=== PATIENT | female | born 1995 | race Caucasian/White ===

== ENCOUNTER 2017-10-04 21:11 | Emergency (ER) | payer MEDICAID, SELFPAY ==
[2017-10-04 21:11] VITALS: BP 126/77; PULSE 86; RESP 15; TEMP 36.7; BMI 19.8
--- NOTE | 2017-10-04 21:26 | ED.VISSUMM ---
- ER Visit Summary Date of Service: 10/04/17 Chief Complaint: Vaginal discharge History of Present Illness: The patient is a 22 F who present for day history of vaginal discharge. Patient states that her boyfriend told her he tested positive for gonorrhea. She has had some mild pelvic cramping for the past 3 days. No dysuria or fever. Patient recently came off the control shot. She states she has had some spotting in September but had a normal period. She took 2 sazc-cij-yhelkqt tests that were both invalid. Physical Examination: Vital signs are unremarkable. Patient sitting upright in bed no acute distress. Heart is regular rate and rhythm. Lung sounds are clear. Abdomen is soft with mild suprapubic tenderness. No guarding or rebound. No back or CVA tenderness. Test Results: Urinalysis returns positive for nitrites but only 0-5 white blood cells and 5-10 epithelials. Urine test is negative. Urine culture will be sent. GC and Chlamydia testing was sent. Emergency Department Course and Treatment: She denies any perineal lesions. With the known exposure we agreed to run urine for testing and forego the pelvic examination. With a known exposure this would not greatly change our treatment. Patient was treated with Rocephin and Zithromax. She was notified that if her gonorrhea or chlamydia test are positive she will receive a phone call to notify her. Likewise, if her urine culture is positive and she requires antibiotics she will be notified. Treatment Plan: [] Disposition: Discharge Impression: STD exposure This note was generated with [employer] dictation software. It may contain incorrect words, spelling, and punctuation that were not noted in review of the chart prior to signing ED Disposition - Plan for ED Patient: Chief Complaint: Female C/O
[2017-10-04 21:45] LABS: Mucous, Urine 0 SEEN /hpf (<or=2+); Red Blood Cells-Urine 0 SEEN /hpf (0-5)
[2017-10-04 21:49] LABS: Color, Urine Yellow (Yellow); Glucose, Dipstick Normal (Normal); Ketone-Dipstick Negative (Negative); Leukocyte Esterase-Dipstick 25 /ul (Negative); Nitrite-Dipstick Positive (Negative); Occult Blood-Urine Negative /ul (Negative); Protein-Dipstick 15 mg/dl (Negative); Specific Gravity, Urine 1.025 (1.002-1.030); Urine Bilirubin Dipstick Negative (Negative); Urine Clarity Sl. Cloudy (Clear); Urine Urobilinogen Normal (Normal)
[2017-10-04 21:52] LABS: Internal QC Validated? YES +Cl - CLEAR BKGD; Pregnancy, Urine Negative Negative
[2017-10-04 21:56] LABS: Amorphous Sediment 1+ URATE; Bacteria 1+ /hpf (None Seen); Squamous Epithelial Cells - UA 5-10 SEEN /hpf (5-10); White Blood Cells 0-5 SEEN /hpf (0-5)
--- NOTE | 2017-10-04 22:08 | ED.DEP ---
ED Disposition - Plan for ED Patient: Disposition: Home or Assisted Living Chief Complaint: Female C/O Instructions: ED Chlamydia GC Poss Culture Pend Referrals: Gordon Hernandez MD [STAFF PHYSICIAN] - As Needed
[2017-10-04] MEDS: Azithromycin 250 MG Tablet 1000 MG PO (22:14)
[2017-10-04] MEDS: Ceftriaxone 500 MG Vial 250 MG IM (22:24)
[2017-10-04 22:39] VITALS: BP 118/40; PULSE 79; RESP 18; O2SAT 97
[2017-10-04 23:23] LABS: Chlamydia Trachomatis by PCR Negative (Negative); Neisserai gonorrhoeae by PCR Positive (Negative); Probe Check PASS
--- NOTE | 2017-10-04 23:30 | ED.RN ---
LAB CALLED WITH POSITIVE GONORRHEA RESULTS. SPOKE WITH DR. CHAPA. PATIENT HAS BEEN TREATED FOR CONDITION. PATIENT ATTEMPTED TO BE CONTACTED WITH RESULTS. PATIENT DID NOT ANSWER NOR HAS VOICE MAIL SET UP AT THIS TIME FOR LEAVING A MESSAGE.
--- NOTE | 2017-10-05 00:04 | ED.RN ---
PATIENT CALLED BACK AND INFORMED OF RESULTS. NO FURTHER TREATMENT REQUIRED
== END 2017-10-04 22:40 | disposition home or self-care (01) ==
PROVIDERS: Emergency Provider Emergency Medicine; Family Provider Family Medicine; PCP Family Medicine
DX: Z20.2 Contact with and (suspected) exposure to infections with a predominantly sexual mode of transmission (principal); Z86.19 Personal history of other infectious and parasitic diseases; Z72.0 Tobacco use
CPT/HCPCS: 81001; 81025; 87077; 87086; 87088; 87186; 87491; 87591; 96372; 99283

== ENCOUNTER 2017-11-18 18:22 | Emergency (ER) | payer MEDICAID, SELFPAY ==
[2017-11-18 18:23] VITALS: BP 129/83; PULSE 113; RESP 16; TEMP 37; O2SAT 100; BMI 20.5
[2017-11-18 19:10] VITALS: BP 126/83; BP 129/90; BP 133/93; PULSE 107; PULSE 117; PULSE 118
[2017-11-18 19:35] LABS: Bacteria 0 SEEN /hpf (None Seen); Squamous Epithelial Cells - UA 0 SEEN /hpf (5-10); White Blood Cells 0 SEEN /hpf (0-5)
[2017-11-18 19:38] VITALS: BP 139/93; PULSE 118
[2017-11-18 19:56] LABS: Absolute Neutrophil Count 5.1 X10^3/uL (2.0-7.7); Basophil# 0.03 X10^3/uL; Basophil% 0.4 % (0-1); Eosinophil# 0.15 X10^3/uL; Eosinophils% 1.8 % (0-5); Hemoglobin 12.3 g/dl (12.0-15.0); Lymphocyte % 28.3 % (19-41); Mean Corp Hgb Conc 32.4 g/gl (32-36); Mean Corpuscular Hgb 28.3 pg (27.0-32.0); Mean Corpuscular Volume 87.4 fL (81-99); Mean Platelet Vol. 9.8 fl (6.2-12.0); Monocyte# 0.76 X10^3/uL; Neutrophil # 5.14 X10^3/uL (2.7-7.7); Neutrophil % 60.4 % (47-70); Platelet Count 240 K/mm3 (150-450); RBC Distribution Width CV 13.3 % (11.6-14.6); RBC Distribution Width SD 42.7 fl (35.1-43.9); Red Blood Count 4.35 M/mm3 (4.2-5.4); White Blood Count 8.5 K/mm3 (4.4-11.0)
[2017-11-18 20:06] LABS: Color, Urine Yellow (Yellow); Glucose, Dipstick Normal (Normal); Ketone-Dipstick Negative (Negative); Leukocyte Esterase-Dipstick 25 /ul (Negative); Nitrite-Dipstick Negative (Negative); Occult Blood-Urine 250 /ul (Negative); Protein-Dipstick 15 mg/dl (Negative); Specific Gravity, Urine 1.015 (1.002-1.030); Urine Bilirubin Dipstick Negative (Negative); Urine Clarity Cloudy (Clear); Urine Urobilinogen 4 mg/dl (Normal)
[2017-11-18 20:08] LABS: Internal QC Validated? YES +Cl - CLEAR BKGD; Pregnancy, Urine Negative Negative
[2017-11-18 20:09] LABS: POSITIVE COUNT NO; POSITIVE DIFFERENTIAL NO; POSITIVE MORPHOLOGY NO
[2017-11-18 20:15] LABS: Amorphous Sediment 1+; Red Blood Cells-Urine 25-50 SEEN /hpf (0-5)
--- NOTE | 2017-11-18 20:38 | ED.VISSUMM ---
- ER Visit Summary Date of Service: 11/18/17 Chief Complaint: Pelvic pain and vaginal bleeding History of Present Illness: The patient is a 22 F who presents with pelvic pain. It is sharp. It began today. She also complains of vaginal bleeding. She has a history of irregular menses as she was previously on Depo-Provera she states her last menstrual period was 6 weeks ago. They seem to be heavier than usual. She tried to take 2 tests at home was just resulted in a invalid. She reports urinary frequency. No fevers chest pain shortness of breath nausea vomiting or diarrhea. Physical Examination: Afebrile heart rate 113 although the patient is very anxious Heart regular rhythm tachycardia Lungs are clear Abdomen soft Moderate active bleeding on speculum exam no cervical friability or discharge Test Results: CBC normal. Urinalysis shows blood otherwise normal. is negative. Emergency Department Course and Treatment: Orthostatic vital signs were negative. The patient is tachycardic at baseline but did not have an inappropriate increase in heart rate. I believe a component of her tachycardia is related to anxiety. She does not have severe bleeding. Her blood pressure is normal. Her hemoglobin is normal. Her is negative. She was advised to follow-up with [facility] and was discharged home. Treatment Plan: [] Disposition: Discharge Impression: Pelvic pain Vaginal bleeding This note was generated with [employer] dictation software. It may contain incorrect words, spelling, and punctuation that were not noted in review of the chart prior to signing ED Disposition - Plan for ED Patient: Chief Complaint: Vag Bleeding
--- NOTE | 2017-11-18 20:40 | ED.DEP ---
ED Disposition - Plan for ED Patient: Chief Complaint: Vag Bleeding Instructions: ED Bleed Irregular Vaginal Referrals: Gordon Hernandze MD [STAFF PHYSICIAN] -
[2017-11-18 21:00] VITALS: BP 122/60; PULSE 95; RESP 18; O2SAT 96
== END 2017-11-18 21:00 | disposition home or self-care (01) ==
LOC: ED 20:52
PROVIDERS: Emergency Provider Emergency Medicine; Family Provider Family Medicine; PCP Family Medicine
DX: R10.2 Pelvic and perineal pain (principal); N93.9 Abnormal uterine and vaginal bleeding, unspecified; Z72.0 Tobacco use
CPT/HCPCS: 36415; 81001; 81025; 85025; 99283

== ENCOUNTER 2018-06-18 11:45 | Emergency (ER) | payer MEDICAID, SELFPAY ==
[2018-06-13 15:37] VITALS: BMI 20.5
[2018-06-18 11:46] VITALS: BP 136/88; PULSE 110; RESP 16; TEMP 36.6; O2SAT 97; BMI 21.4
--- NOTE | 2018-06-18 12:07 | ED.VISSUMM ---
- ER Visit Summary Date of Service: 06/18/18 Chief Complaint: Facial rash History of Present Illness: The patient is a 23 F who presents for facial rash, now with left eye swelling for 2 days. Patient had a rash develop on her left forehead and one lesion on the right lower jaw. She was seen by a nurse practitioner and prescribed mupirocin ointment. She is used it for the last 2 days but has had worsening of the facial rash and now swelling around the left eye. She was concern for a allergic reaction. Patient denies any itching. She denies fever, chest pain, shortness of breath, nausea or vomiting, abdominal pain or any other complaints. Patient denies any current drug use. No pain with moving of her eye. Physical Examination: Vital signs: afebrile, hemodynamically stable, no hypoxia on room air General: well nourished, well developed, in no distress Skin: warm, dry, no rash, no pallor, multiple erythematous macules and papules to the face with secondary excoriations, large erythematous lesion with an overlying excoriation on the left superior forehead and a similar one in the mid superior forehead. Similar lesion on the right jawline. No drainage or purulence noted. No surrounding induration or fluctuance. Left periorbital region is diffusely edematous and erythematous. No conjunctival injection. Full active range of motion of the eyes without pain. Vision intact. HEENT: normocephalic and atraumatic; PERRL, EOMI, moist mucous membranes, no posterior oropharyngeal lesions. Tender left superior anterior cervical chain lymphadenopathy. TMs are clear and pearly without any erythema, dullness or bulging. Neck supple, no meningismus. Cardiovascular: regular rate and rhythm without murmurs, no peripheral edema, 2+ pulses all distal extremities Respiratory: No increased work of breathing, lungs are clear to auscultation bilaterally, no rales, rhonchi or wheezing Abdominal: Abdomen is soft, nontender with normoactive bowel sounds, no guarding or rebound, no masses MSK: Moves all extremities, no deformities, normal strength Neuro: Awake and alert, oriented ?4. No facial droop, sensation and motor function intact and symmetric Test Results: [] Emergency Department Course and Treatment: Patient presents with concern for worsening cellulitis of the face. The initial 2 lesions have worsened and rather than improve with the mupirocin ointment. The left periorbital edema and erythema is more consistent with a periorbital cellulitis rather than allergic reaction. Patient was told to discontinue mupirocin use. She was prescribed clindamycin to use for treatment of periorbital cellulitis. Patient otherwise is nontoxic appearing. She was given strict return precautions. Patient discharged home. Treatment Plan: [] Disposition: [] Impression: Left periorbital cellulitis. This note was generated with [employer] dictation software. It may contain incorrect words, spelling, and punctuation that were not noted in review of the chart prior to signing ED Disposition - Plan for ED Patient: Prescriptions: Clindamycin [Cleocin] 450 mg PO TID #10 day Referrals: Vinny Duggan MD [Primary Care Provider] -
--- NOTE | 2018-06-18 12:10 | ED.DEP ---
ED Disposition - Plan for ED Patient: Disposition: Home or Assisted Living Instructions: ED Cellulitis Ema Orbital Prescriptions: Clindamycin [Cleocin] 450 mg PO TID #10 day Referrals: Vinny Duggan MD [Primary Care Provider] - 3-5 Days if not improving Additional Instructions: Stop using the antibiotic ointment. Take the clindamycin antibiotic 3 times a day as prescribed for the full 10 days, even if you feel better before that. If you have any worsening of your condition or any new concerning symptoms, please return immediately to the emergency department for another evaluation.
[2018-06-18 13:03] VITALS: BP 138/82; PULSE 106; RESP 14; O2SAT 99
== END 2018-06-18 13:04 | disposition home or self-care (01) ==
PROVIDERS: Emergency Provider Emergency Medicine; Family Provider Internal Medicine; PCP Internal Medicine
DX: L03.213 Periorbital cellulitis (principal); F32.9 Major depressive disorder, single episode, unspecified; Z79.899 Other long term (current) drug therapy
CPT/HCPCS: 36415; 80053; 84443; 85025; 86703; 86704; 86705; 86706; 86708; 86709; 86803; 87340; 99282

== ENCOUNTER → 2018-06-18 13:08 | Outpatient (CLI) | payer MEDICAID, SELFPAY ==
[2018-06-18 11:46] VITALS: BMI 21.4
[2018-06-18 14:04] LABS: Absolute Lymphocyte Count 2.07 X10^3/ul (0.83-4.51); Absolute Neutrophil Count 4.1 X10^3/uL (2.0-7.7); Basophil# 0.02 X10^3/uL; Basophil% 0.3 % (0-1); Eosinophil# 0.16 X10^3/uL; Eosinophils% 2.3 % (0-5); Hematocrit 44.1 % (37-47); Hemoglobin 14.7 g/dl (12.0-15.0); Lymphocyte # 2.07 X10^3/ul (4.0); Lymphocyte % 30.2 % (19-41); Mean Corp Hgb Conc 33.3 g/gl (32-36); Mean Corpuscular Hgb 29.1 pg (27.0-32.0); Mean Corpuscular Volume 87.3 fL (81-99); Mean Platelet Vol. 9.9 fl (6.2-12.0); Monocyte# 0.51 X10^3/uL; Monocyte% 7.4 % (0-10); Neutrophil # 4.09 X10^3/uL (2.7-7.7); Neutrophil % 59.7 % (47-70); Platelet Count 258 K/mm3 (150-450); RBC Distribution Width CV 12.4 % (11.6-14.6); RBC Distribution Width SD 39.1 fl (35.1-43.9); Red Blood Count 5.05 M/mm3 (4.2-5.4); White Blood Count 6.9 K/mm3 (4.4-11.0)
[2018-06-18 14:05] LABS: POSITIVE COUNT NO; POSITIVE DIFFERENTIAL NO; POSITIVE MORPHOLOGY NO
[2018-06-18 14:37] LABS: ALB/GLOB Ratio 1.1 RATIO (0.9-2.4); AST(SGOT) 14 U/L (15-37); Alanine Aminotransfer ALT/SGPT 16 U/L (13-56); Albumin, Serum 4.3 g/dL (3.2-5.0); Alkaline Phosphatase 96 U/L (45-117); Anion Gap 10 (5-15); BUN 7 mg/dL (7-18); BUN/Creat Ratio 7.8 RATIO (10-20); Calcium,Total 8.7 mg/dL (8.5-10.1); Chloride 109 mmol/L (98-107); EST Glomerular Filtration Rate 84 mL/min (>60); Est Glom Filt Rate - Afr Amer 101 mL/min (>60); Globulin 3.8 g/dL (2.2-4.2); Glucose 104 mg/dL (74-106); Potassium 3.7 mmol/L (3.5-5.1); Protein, Total 8.1 g/dL (6.4-8.2); Sodium Level 142 mmol/L (136-145); Thyroid Stim Hormone (TSH) 1.48 uIU/mL (0.358-3.74)
[2018-06-18 15:08] LABS: HIV - WCH Non-Reactive (Nonreactive)
[2018-06-19 13:08] LABS: HEPATITIS B SURFACE AG Negative (Negative); Hepatitis A AB, Total Positive (Negative); Hepatitis A IgM Antibody Negative (Negative); Hepatitis B Core AB IgM Negative (Negative); Hepatitis B Core Ab Total Negative (Negative); Hepatitis C Ab <0.1 s/co ratio (0.0-0.9)
[2018-06-20 20:50] LABS: Hep B Surface Antibodies Non Reactive (.)
== END ==
PROVIDERS: Family Provider Internal Medicine; PCP Internal Medicine; Referring Provider Nurse Practitioner Family; Visit Provider Nurse Practitioner Family
DX: F19.10 Other psychoactive substance abuse, uncomplicated (principal); F41.8 Other specified anxiety disorders; L29.9 Pruritus, unspecified
CPT/HCPCS: 36415; 80053; 84443; 85025; 86703; 86704; 86705; 86706; 86708; 86709; 86803; 87340

== ENCOUNTER 2018-07-06 02:51 | Emergency (ER) | payer MEDICAID, SELFPAY ==
[2018-06-25 17:00] VITALS: BMI 21.4
[2018-07-06 02:51] VITALS: BP 146/98; PULSE 101; RESP 16; TEMP 36.7; O2SAT 100; BMI 20.7
--- NOTE | 2018-07-06 02:54 | ED.DCSUM_ITS ---
- ER Visit Summary Date of Service: 07/06/18 Chief Complaint: [Abscess History of Present Illness: The patient is a 23 F with history of IV drug abuse presents with abscess. Patient states that she had an abscess that came out in her left antecubital area over the past 24 hours. She was recently on oral a ntibiotics for a facial infection. She has had prior I&D before. 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 She has been in the process of getting clean. She denies any fevers or chills. She denies any chest pain or shortness of breath. She denies any other symptoms. Physical Examination: Exam is relatively unremarkable. Patient does have wound without cellulitis over the left antecubital. There is tenderness in the antecubital fossa. There is no cellulitis. There is no streaking. The compartments are soft. Pulses are normal. There is no lymphangitis. Test Results: [] Emergency Department Course and Treatment: Bedside ultrasound was done. Patient does appear to have a phlebitis in the venous system. There is no focal abscess. I do have concern that attempting I&D would just cause the patient to bleed and would not be curative. It does not involve the deep system. It is localized to the area where she injected. Patient will continue warm compresses. Will place her on doxycycline. She has no other infectious symptoms and may be concern for endocarditis or other dangerous process. She will continue warm compresses. I do want this reevaluated within 48 hours. I counseled the patient if she cannot follow-up with a primary care she should return to the emergency department. She is comfortable with this plan of care. Treatment Plan: [] Disposition: Discharge Impression: 1. Phlebitis of left arm This note was generated with [employer] dictation software. It may contain incorrect words, spelling, and punctuation that were not noted in review of the chart prior to signing ED Disposition - Plan for ED Patient: Instructions: ED Phlebitis Superficial Prescriptions: Doxycycline 100 mg PO BID #20 cap Referrals: Vinny Duggan MD [Primary Care Provider] -
[2018-07-06] MEDS: Doxycycline 100 MG CAPSULE PO (03:18)
[2018-07-06] MEDS: Ondansetron ODT 4 MG Tablet PO (03:20)
[2018-07-06 03:24] VITALS: PULSE 101; RESP 16; O2SAT 100
--- NOTE | 2018-07-06 03:29 | ED.RN ---
THIS NURSE REVIEWED D/C INSTRUCTIONS WITH PT. PT VERBALIZED UNDERSTANDING OF INSTRUCTIONS. PT DENIES FURTHER NEEDS OR QUESTIONS AT THIS TIME. PT AMBULATES FROM ROOM ON OWN WITHOUT ASSISTANCE FROM STAFF
== END 2018-07-06 03:30 | disposition home or self-care (01) ==
LOC: ED 03:24
PROVIDERS: Emergency Provider Emergency Medicine; Family Provider Internal Medicine; PCP Internal Medicine
DX: I80.8 Phlebitis and thrombophlebitis of other sites (principal); F15.10 Other stimulant abuse, uncomplicated; F11.10 Opioid abuse, uncomplicated; Z72.0 Tobacco use
CPT/HCPCS: 99283

== ENCOUNTER 2018-07-14 04:45 | Emergency (ER) | payer MEDICAID, SELFPAY ==
[2018-07-11 11:26] VITALS: BMI 20.7
[2018-07-14 04:46] VITALS: BP 138/87; PULSE 122; RESP 16; TEMP 36.5; O2SAT 100; BMI 21.9
--- NOTE | 2018-07-14 05:40 | CT_ITS ---
STUDY: CTA CHEST REASON FOR EXAM: Female, 23 years old. Chest pain. Phlebitis of the left upper extremity. Tachycardia. RADIATION DOSAGE (If Supplied By Facility): CTDIvol = ( 5.62 ) mGy, DLP = ( 200.4 ) mGycm TECHNIQUE: The examination was performed with the intravenous administration of Isovue 370 75 IV. Post-processing of the angiographic images was performed, with multiplanar reformation and 3D reconstruction. Individualized dose optimization techniques were used for this CT. COMPARISON: None. FINDINGS: Small bilateral axillary lymph nodes. Normal enhancement of the main pulmonary artery and right and left pulmonary arteries. Normal enhancement of the bilateral peripheral pulmonary arteries. There is no demonstrated pulmonary embolism. Normal thoracic aorta and visualized great vessels. There is no demonstrated aortic dissection. Normal heart and pericardium. Normal mediastinum. Normal hilar regions. Normal visualized trachea and bronchi. The lungs are well expanded. Normal pulmonary parenchyma. Normal pleura. Normal chest wall structures. Normal osseous structures. Normal visualized upper abdomen. CT/CTA Chest W/WO Contrast IMPRESSION: Normal CTA chest examination, without a demonstrated pulmonary embolism or arterial dissection. Electronically Signed: Irvin Swartz, at 8:24 EDT , Service support ,
--- NOTE | 2018-07-14 05:40 | EKG12_ITS ---
Test Reason : PALP Blood Pressure : / mmHG Vent. Rate : 110 BPM Atrial Rate : 110 BPM P-R Int : 128 ms QRS Dur : 082 ms QT Int : 306 ms P-R-T Axes : 068 089 033 degrees QTc Int : 414 ms Sinus tachycardia Otherwise normal ECG Confirmed by FELICIANO PEREZ, CASTILLO ([id number]), technical writer and editor SRINIVASA RAVI ([id number]) on 07/17/2018 10:33:44 AM Referred By: ANNIA Confirmed By:CASTILLO WIGGINS MD
--- NOTE | 2018-07-14 05:44 | ED.DCSUM_ITS ---
- ER Visit Summary Date of Service: 07/14/18 Chief Complaint: Palpitation History of Present Illness: The patient is a 23 F who presents with palpitations that have been constant for the past 3 days. Patient states she was here last week and was diagnosed with superficial phlebitis and abscess to her left antecubital area. Patient states she followed up with her primary care physician 3 days ago. Patient was noted to have tachycardia at that time. Patient states that she was instructed to continue to monitor the tachycardia and if it became worse she was to come to the emergency department for further evaluation. Patient admits to a throbbing sensation in her left lower chest. Patient denies any shortness of breath. Patient does admit to a cough. Patient also admits to some nausea and vomiting. Physical Examination: Vital signs are stable except for tachycardia of 122. Patient is afebrile. Patient is in no acute distress. Oral mucosa is pink and moist. Neck is supple. Trachea is midline. There is no JVD noted. Heart was regular and tachycardic. Lungs are clear and equal bilateral. Abdomen is soft and nontender. Cranial nerves II through XII are intact. Skin is warm and dry. There is an healing abscess over the left antecubital area. There is no active drainage. There is no fluctuance. The remaining physical exam is within normal limits. Test Results: EKG showed sinus tachycardia with a rate of 110. There is nonspecific T wave inversion in lead III only. There are no other acute ST or T wave changes. CBC was normal. Basic metabolic profile is pending. CTA of the chest is pending. On my interpretation, I did not see any evidence of pulmonary embolism. Emergency Department Course and Treatment: Patient was given IV fluids. Care of the patient was turned over to the oncoming physician with labs and CTA pending. Disposition: Likely discharge home Impression: 1. Tachycardia This note was generated with [employer] dictation software. It may contain incorrect words, spelling, and punctuation that were not noted in review of the chart prior to signing ED Disposition - Plan for ED Patient: Disposition: Home or Assisted Living Diagnosis: Tachycardia Instructions: ED Palpitations Referrals: Vinny Duggan MD [Primary Care Provider] -
[2018-07-14 06:32] LABS: Absolute Lymphocyte Count 2.79 X10^3/ul (0.83-4.51); Absolute Neutrophil Count 2.5 X10^3/uL (2.0-7.7); Basophil# 0.02 X10^3/uL; Basophil% 0.3 % (0-1); Eosinophils% 1.7 % (0-5); Hematocrit 38.9 % (37-47); Hemoglobin 12.7 g/dl (12.0-15.0); Lymphocyte # 2.79 X10^3/ul (4.0); Lymphocyte % 46.9 % (19-41); Mean Corp Hgb Conc 32.6 g/gl (32-36); Mean Corpuscular Hgb 28.7 pg (27.0-32.0); Mean Corpuscular Volume 87.8 fL (81-99); Mean Platelet Vol. 10.5 fl (6.2-12.0); Monocyte# 0.57 X10^3/uL; Monocyte% 9.6 % (0-10); Neutrophil # 2.47 X10^3/uL (2.7-7.7); Neutrophil % 41.5 % (47-70); Platelet Count 208 K/mm3 (150-450); RBC Distribution Width SD 41.9 fl (35.1-43.9); Red Blood Count 4.43 M/mm3 (4.2-5.4)
[2018-07-14 06:35] LABS: POSITIVE COUNT NO; POSITIVE DIFFERENTIAL NO; POSITIVE MORPHOLOGY NO
[2018-07-14] MEDS: 0.9% Normal Saline 1,000 ML 1000 ML IV (07:07)
[2018-07-14 09:10] LABS: Anion Gap 6 (5-15); BUN 15 mg/dL (7-18); BUN/Creat Ratio 18.3 RATIO (10-20); Chloride 113 mmol/L (98-107); Creatinine, Serum 0.82 mg/dL (0.55-1.02); EST Glomerular Filtration Rate 93 mL/min (>60); Est Glom Filt Rate - Afr Amer 113 mL/min (>60); Estimated Creatinine Clearance 93.71 ml/min; Glucose 87 mg/dL (74-106); Potassium 3.9 mmol/L (3.5-5.1); Sodium Level 140 mmol/L (136-145)
[2018-07-14 10:00] LABS: Mucous, Urine 0 SEEN /hpf (<or=2+); Red Blood Cells-Urine 0 SEEN /hpf (0-5); White Blood Cells 0 SEEN /hpf (0-5)
[2018-07-14 10:03] LABS: Color, Urine Yellow (Yellow); Glucose, Dipstick Normal (Normal); Ketone-Dipstick Negative (Negative); Leukocyte Esterase-Dipstick Negative /ul (Negative); Nitrite-Dipstick Negative (Negative); Occult Blood-Urine Negative /ul (Negative); Protein-Dipstick Negative (Negative); Urine Bilirubin Dipstick Negative (Negative); Urine Clarity Clear (Clear); Urine Urobilinogen Normal (Normal)
[2018-07-14 10:06] LABS: Bacteria 2+ /hpf (None Seen); Squamous Epithelial Cells - UA 0-5 SEEN /hpf (5-10)
[2018-07-14 10:19] VITALS: BP 125/72; PULSE 114; RESP 16; O2SAT 98
[2018-07-14] MEDS: 0.9% Normal Saline 1,000 ML 999 ML IV (10:32)
--- NOTE | 2018-07-14 10:43 | ED.VISSUMM ---
- ER Visit Summary Date of Service: 07/14/18 Chief Complaint: [Addendum to initial dictation by Dr. Oliverio Lemus] History of Present Illness: The patient is a 23 F [presented with tachycardia. Care of patient turned over to me awaiting CT results to rule out PE. Patient tells me that she is had heart rates into the 140s over the weekend. Patient currently being treated for an abscess to the left antecubital arm. She denies documented fever although she is had some chills and subjective fever at home. Patient's not been feeling well. Patient has a history of IV drug abuse but states that she has not used over 3 weeks. Patient had used heroin in the past but most recently she had used methamphetamines that she snorted. Patient currently on doxycycline.] Physical Examination: [HEROMAN-PERRLA, RUKHSANAMI. Cranial nerves II through XII grossly intact. TMs clear. Mucous membranes moist. No adenopathy. Cardiovascular-regular rate and rhythm without murmur or ectopy Lungs-clear to auscultation, chest wall stable without crepitus or subcu emphysema Abdomen-normoactive bowel sounds, soft, nontender, no rebound or rigidity, no peritoneal signs. Extremities-intact ?4, normal range of motion, normal pulses, atraumatic. Patient has diffuse erythema to both feet but they do not appear cellulitic. No Janeway lesions noted Test Results: [CBC with differential was unremarkable. Chemistries unremarkable. CT of the chest was normal. Urinalysis was normal. Urine tox screen ordered and pending.] Emergency Department Course and Treatment: [Patient received a liter normal same fluid bolus in the emergency department and she continues to be tachycardic at rest with heart rate over 120. At this point I recommended admission and I ordered blood cultures. Given her history of drug abuse and concerned about overt infection versus potentially endocarditis although I do not hear any heart murmurs.] Treatment Plan: [I had a long discussion with the patient and her friend who is in the room with her. They understand that I am recommending admission and have some serious concerns regarding her tachycardia and her history of IV drug abuse. I am worried about severe infections such as sepsis developing or endocarditis. Patient is refusing to be admitted and understands my concerns. Patient will sign out AGAINST MEDICAL ADVICE. Patient understands she may return at any time for further treatment and evaluation.] Disposition: [Signed out AGAINST MEDICAL ADVICE] Impression: [Tachycardia] This note was generated with [employer] dictation software. It may contain incorrect words, spelling, and punctuation that were not noted in review of the chart prior to signing Capacity - Capacity Assessment Tool Can the patient make a choice & communicate that choice?: Yes Can the patient understand benefits, risks and alternatives?: Yes Can the patient make a logical, rational choice?: Yes Is the choice the patient makes consistent w/ their values?: Yes Is there an impending, emergent risk to the patient?: Yes Does the patient have an Advance Directive?: No Is there a Surrogate Available?: No i.e. HCPOA: No i.e. close relative (spouse, child, parent, sibling)?: No ED Disposition - Plan for ED Patient: Disposition: Home or Assisted Living Diagnosis: Tachycardia Instructions: ED Palpitations Referrals: Vinny Duggan MD [Primary Care Provider] -
--- NOTE | 2018-07-14 10:51 | ED.DEP ---
ED Disposition - Plan for ED Patient: Disposition: Home or Assisted Living Diagnosis: Tachycardia Instructions: ED Palpitations, ED Tachycardia Pat PSVT, ED Drug Abuse General Referrals: Vinny Duggan MD [Primary Care Provider] - As soon as possible
[2018-07-14 10:52] LABS: Amphetamine Urine VISTA NEGATIVE (<1000 ng/mL); Barbiturate Urine VISTA NEGATIVE (< 200 ng/mL); Benzodiazepine Urine VISTA NEGATIVE (< 200 ng/mL); Cocaine Urine VISTA NEGATIVE (< 300 ng/mL); Ecstacy Urine VISTA NEGATIVE (< 500 ng/mL); Methadone Urine VISTA NEGATIVE (< 300 ng/mL); PCP Urine VISTA NEGATIVE (< 25 ng/mL); THC Urine VISTA NEGATIVE (< 50 ng/mL); Vista UDS pH Range 7
[2018-07-14 11:16] VITALS: BP 126/75; PULSE 112; RESP 20; O2SAT 100
== END 2018-07-14 11:24 | disposition left against medical advice (07) ==
PROVIDERS: Emergency Medicine; Emergency Provider Emergency Medicine; Family Provider Internal Medicine; PCP Internal Medicine
DX: R00.0 Tachycardia, unspecified (principal); J45.909 Unspecified asthma, uncomplicated; F17.210 Nicotine dependence, cigarettes, uncomplicated; F19.10 Other psychoactive substance abuse, uncomplicated
CPT/HCPCS: 36415; 71275; 80048; 80307; 81001; 85025; 87040; 93005; 96360; 96361; 99285; J7030; Q9967; A4216

== ENCOUNTER → 2018-08-22 13:48 | Outpatient (CLI) | payer MEDICAID, SELFPAY ==
[2018-08-06 12:09] VITALS: BMI 21.4
--- NOTE | 2018-08-22 13:51 | ECHOD_ITS ---
Reason For Study: Arrhythmia Procedure This was a 2D Doppler, Color Flow transthoracic echocardiogram. Exam performed in department. Left Ventricle Normal LV size. Left ventricular systolic function is normal. The estimated ejection fraction is 65 %. Stage 1 diastolic dysfunction. No regional wall motion abnormalities noted. Right Ventricle Normal RV size. Normal systolic function. Atria Normal left atrium. Normal right atrium. Bubble contrast study negative for right to left interatrial shunt. Mitral Valve Normal mitral valve. Tricuspid Valve Normal tricuspid valve. Aortic Valve Normal aortic valve. Trisinus/trileaflet aortic valve. Pulmonic Valve Normal pulmonic valve. Great Vessels Normal aortic root. The pulmonary artery is normal size. Normal inferior vena cava. Pericardium/Pleural No pericardial effusion. Medication 22 gauge I.V. with prn adaptor inserted into right arm. Performed a rapid injection of agitated mix of 9 cc saline and 1cc air to assess for atrial septal defect. MMode/2D Measurements & Calculations LVIDd: 3.9 cm IVSd: 0.87 cm LA dimension: 2.9 cm LVIDs: 2.6 cm LVPWd: 0.81 cm RVDd: 3.2 cm FS: 34.0 % LAV(MOD-bp): 43.3 ml LA A4 area: 16.0 cm2 RA A4 area: 11.2 cm2 LAV(MOD-bp) Indexed: 26.8 ml/m2 LAV(MOD-sp2): 39.8 ml LAV(MOD-sp4): 41.4 ml Time Measurements MV dec time: 0.24 sec Doppler Measurements & Calculations MV E max terry: 96.0 cm/sec Lat Peak E' Terry: 18.6 cm/sec Med Peak E' Terry: 15.9 cm/sec MV A max terry: 69.0 cm/sec E/E' lat: 5.2 E/E' med: 6.0 MV E/A: 1.4 MV V2 max: 105.7 cm/sec MV P1/2t max terry: 105.7 cm/sec Ao V2 max: 118.4 cm/sec MV max P.5 mmHg MV P1/2t: 79.9 msec Ao max P.6 mmHg MV V2 mean: 62.6 cm/sec MV dec slope: 387.5 cm/sec2 MV mean P.8 mmHg MV V2 VTI: 27.2 cm MVA(P1/2t): 2.8 cm2 LV V1 max: 109.0 cm/sec PA V2 max: 84.7 cm/sec LV V1 max P.7 mmHg Interpretation Summary Normal LV size. Left ventricular systolic function is normal. The estimated ejection fraction is 65 %. Stage 1 diastolic dysfunction. Bubble contrast study negative for right to left interatrial shunt. Ordering Physician: Sarabjit Mead Referring Physician: Sarabjit Mead Performed By: Jacob Forbes RCS
== END ==
PROVIDERS: Family Provider Internal Medicine; PCP Internal Medicine; Referring Provider Internal Medicine Cardiovascular Disease; Visit Provider Internal Medicine Cardiovascular Disease
DX: R00.0 Tachycardia, unspecified (principal)
CPT/HCPCS: 93306

== ENCOUNTER → 2018-11-28 16:22 | Outpatient (CLI) | payer MEDICAID, SELFPAY ==
[2018-11-25 13:54] VITALS: BMI 21.4
[2018-11-28 17:00] LABS: Absolute Lymphocyte Count 2.39 X10^3/uL (0.83-4.51); Absolute Neutrophil Count 2.5 X10^3/uL (2.0-7.7); Basophil# 0.03 X10^3/uL; Basophil% 0.6 % (0-1); Eosinophils% 1.9 % (0-5); Hematocrit 46.4 % (37-47); Hemoglobin 15.5 g/dL (12.0-15.0); Lymphocyte # 2.39 X10^3/ul (4.0); Lymphocyte % 44.9 % (19-41); Mean Corp Hgb Conc 33.4 g/dL (32-36); Mean Corpuscular Hgb 29.8 pg (27.0-32.0); Mean Corpuscular Volume 89.2 fL (81-99); Mean Platelet Vol. 10.4 fl (6.2-12.0); Monocyte# 0.32 X10^3/uL; NRBC Flagged by Analyzer 0 % (0-5); Neutrophil # 2.47 X10^3/uL (2.7-7.7); Neutrophil % 46.4 % (47-70); Platelet Count 244 K/mm3 (150-450); RBC Distribution Width CV 11.5 % (11.6-14.6); RBC Distribution Width SD 37.5 fl (35.1-43.9); White Blood Count 5.3 K/mm3 (4.4-11.0)
[2018-11-28 17:29] LABS: ALB/GLOB Ratio 1.1 RATIO (0.9-2.4); AST(SGOT) 13 U/L (15-37); Alanine Aminotransfer ALT/SGPT 13 U/L (13-56); Albumin, Serum 4.4 g/dL (3.2-5.0); Alkaline Phosphatase 93 U/L (45-117); Anion Gap 3 (5-15); BUN 9 mg/dL (7-18); BUN/Creat Ratio 10.3 RATIO (10-20); Calcium,Total 9.3 mg/dL (8.5-10.1); Chloride 106 mmol/L (98-107); Creatinine, Serum 0.87 mg/dL (0.55-1.02); EST Glomerular Filtration Rate 87 mL/min (>60); Est Glom Filt Rate - Afr Amer 105 mL/min (>60); Globulin 3.9 g/dL (2.2-4.2); Glucose 103 mg/dL (74-106); Potassium 4.3 mmol/L (3.5-5.1); Protein, Total 8.3 g/dL (6.4-8.2); Sodium Level 137 mmol/L (136-145)
[2018-11-28 18:15] LABS: HIV - WCH Non-Reactive (Nonreactive)
[2018-11-30 22:07] LABS: HEPATITIS B SURFACE AG Negative (Negative); Hepatitis A AB, Total Positive (Negative); Hepatitis A IgM Antibody Negative (Negative); Hepatitis B Core AB IgM Negative (Negative); Hepatitis B Core Ab Total Negative (Negative); Hepatitis C Ab <0.1 s/co ratio (0.0-0.9)
[2018-12-02 15:19] LABS: Hep B Surface Antibodies Non Reactive (.)
== END ==
PROVIDERS: Family Provider Internal Medicine; PCP Internal Medicine; Referring Provider Nurse Practitioner Family; Visit Provider Nurse Practitioner Family
DX: L30.9 Dermatitis, unspecified (principal); F19.10 Other psychoactive substance abuse, uncomplicated; Z20.5 Contact with and (suspected) exposure to viral hepatitis
CPT/HCPCS: 36415; 80053; 85025; 86703; 86704; 86705; 86706; 86708; 86709; 86803; 87340

== ENCOUNTER → 2018-12-08 09:35 | Outpatient (CLI) | payer MEDICAID, SELFPAY ==
[2018-11-25 13:54] VITALS: BMI 21.4
--- NOTE | 2018-12-08 09:38 | US_ITS ---
STUDY: ABDOMINAL ULTRASOUND - RIGHT UPPER QUADRANT REASON FOR VISIT: Female, 23 years old. Right upper quadrant pain. TECHNIQUE: Ultrasound evaluation of the right upper quadrant was performed with real-time and static edge-scale imaging. TECHNICAL QUALITY: Adequate. COMPARISON: None. FINDINGS: Liver: The liver measures 13.5 cm. There is normal echogenicity of the liver. The bile ducts are within normal limits. There is hepatic color flow. The direction of portal flow is hepatopetal. There is no demonstrated mass lesion. Gallbladder: Normal distended gallbladder. The gallbladder wall measures 1.5 mm. There is a negative sonographic Aguayo's sign. There is no pericholecystic fluid. There are no gallstones. There is a 7 mm x 9 mm x 4 mm polyp adherent to the gallbladder wall. Common Bile Duct (C.B.D.): The common bile duct measures 2.4 mm. Pancreas: Normal size of the head, body and tail of the pancreas. There is normal echogenicity of the pancreas. There is no demonstrated pancreatic mass or cyst. Right Kidney: Normal size of the right kidney. The right kidney measures 10.4 cm x 4 cm x 3.7 cm. Normal renal cortex. The right cortex measures 1.0 cm. There is no demonstrated renal mass or cyst. There is no right hydronephrosis. US/Abdomen Limited IMPRESSION: 7 mm x 9 mm x 4 mm gallbladder polyp. Electronically Signed: Irvin Swartz, at 15:47 EDT , Service support ,
[2019-05-14 14:38] VITALS: BMI 22.3
== END ==
PROVIDERS: Family Provider Internal Medicine; PCP Internal Medicine; Referring Provider Nurse Practitioner Family; Visit Provider Nurse Practitioner Family
DX: R10.11 Right upper quadrant pain (principal)
CPT/HCPCS: 76705

== ENCOUNTER 2018-12-14 23:09 | Emergency (ER) | payer MEDICAID, SELFPAY ==
[2018-11-25 13:54] VITALS: BMI 21.4
[2018-12-14 23:10] VITALS: BP 148/87; PULSE 110; RESP 18; TEMP 36.6; O2SAT 100; BMI 23.3
--- NOTE | 2018-12-14 23:24 | ED.DCSUM_ITS ---
- ER Visit Summary Date of Service: 12/14/18 Chief Complaint: [Rash] History of Present Illness: The patient is a 23 F [presents to the emergency room with a rash on her arms and face. Patient states that the rash started about 3 days ago. Patient had been walking down a path and tripped over a log into some weeds. Patient is not sure if she has poison margarita or poison oak but when she noticed some of the rash around her left eye she became concerned. The rash is itchy. Denies recent illness. Patient denies any new medications or new soaps or detergents.] Physical Examination: [HEENT-PERRLA, EOMI. Cranial nerves II through XII grossly intact. TMs clear. Mucous membranes moist. No adenopathy. Cardiovascular-regular rate and rhythm without murmur or ectopy Lungs-clear to auscultation, chest wall stable without crepitus or subcu emphysema Abdomen-normoactive bowel sounds, soft, nontender, no rebound or rigidity, no peritoneal signs. Skin exam-patient does have an erythematous red raised rash typical of a Lucretia dermatitis that involves the face as well as the upper extremities and lower extremities. Extremities-intact ?4, normal range of motion, normal pulses, atraumatic] Test Results: [None indicated] Emergency Department Course and Treatment: [Patient was treated with prednisone 60 mill grams p.o.] Treatment Plan: [Patient was started on prednisone 20 mg twice daily for the next 7 days. Patient has had other issues with her skin and rashes that she has had for some time and would like a referral to a clinical lab technologist therefore I will refer her to Dr. Pal locally.] Disposition: [Discharged home stable condition] Impression: [Rhous/contact dermatitis] This note was generated with [employer] dictation software. It may contain incorrect words, spelling, and punctuation that were not noted in review of the chart prior to signing ED Disposition - Plan for ED Patient: Referrals: Vinny Duggan MD [Primary Care Provider] -
--- NOTE | 2018-12-14 23:28 | DCINST.ED_ITS ---
ED Disposition - Plan for ED Patient: Instructions: Poison [place] Dermatitis, Poison [place] Dermatitis Prescriptions: Prednisone [Deltasone] 20 mg PO BID #14 tab Prescription Printed Referrals: Vinny Duggan MD [Primary Care Provider] - Adelfo Pal MD [STAFF PHYSICIAN] - 5-7 Days
[2018-12-14] MEDS: predniSONE 20 MG Tablet 60 MG PO (23:32)
== END 2018-12-14 23:35 | disposition home or self-care (01) ==
LOC: ED 23:30
PROVIDERS: Emergency Provider Emergency Medicine; Family Provider Internal Medicine; PCP Internal Medicine
DX: L25.5 Unspecified contact dermatitis due to plants, except food (principal); Z72.0 Tobacco use
CPT/HCPCS: 99283

== ENCOUNTER → 2019-01-01 11:53 | Outpatient (CLI) | payer MEDICAID, SELFPAY ==
[2018-11-25 13:54] VITALS: BMI 21.4
[2018-12-23 14:03] VITALS: BMI 22.1
--- NOTE | 2019-01-01 11:55 | NM_ITS ---
CLINICAL: 23-year-old female with reported history of postprandial right upper quadrant abdominal pain and nausea. RADIONUCLIDE HEPATOBILIARY SCINTIGRAPHY COMPARISON: Abdominal ultrasound report 12/08/2018 FINDINGS: Following the intravenous administration of 5.2 mCi of 99m Tc Mebrofenin, hepatobiliary images reveal: 1. Relatively prompt and homogeneous radiopharmaceutical concentration is noted by a normal sized liver. No parenchymal defects are identified. 2. Gallbladder activity is identified at 45-60 minutes post radiopharmaceutical administration. 3. Small intestinal tract is observed at 15 minutes following tracer injection. 4. Washout of the radiopharmaceutical by the hepatic parenchyma appears qualitatively normal. Cholecystokinin (0.02 ug/kg) was administered intravenously over a 30-minute period. The post CCK gallbladder ejection fraction calculated at 29 minutes following Cholecystokinin administration was noted to be 42.0 % (normal greater than 35%). During 30 minutes of post CCK imaging, there is no scintigraphic evidence of reflux of the radiotracer into the common hepatic duct or refilling of the gallbladder. NM/Hepatobilliary Img w/Pharm Int IMPRESSION: 1. NORMAL 99m Tc Mebrofenin hepatobiliary imaging examination with Cholecystokinin. A. A gallbladder ejection fraction calculated to be greater than 35% following the administration of Cholecystokinin makes the probability of functional hepatobiliary disease (gallbladder and/or sphincter of Oddi dyskinesia) and/or organic hepatobiliary disease (chronic acalculous cholecystitis and/or cystic duct syndrome) to be low. (Tamara Keith et al, Journal of Nuclear Medicine 32:1695, 1991). Electronically Signed: Martin aNva DO at 10:33 EDT Tel , Service support ,
== END ==
PROVIDERS: Family Provider Internal Medicine; PCP Internal Medicine; Referring Provider Nurse Practitioner Family; Visit Provider Nurse Practitioner Family
DX: R10.11 Right upper quadrant pain (principal)
CPT/HCPCS: 78227; A9537; J2805

== ENCOUNTER → 2019-01-08 14:03 | Outpatient (CLI) | payer MEDICAID, SELFPAY ==
[2019-01-02 15:33] VITALS: BMI 21.9
== END ==
PROVIDERS: Family Provider Internal Medicine; PCP Internal Medicine; Referring Provider Physician Assistant Medical; Visit Provider Physician Assistant Medical
DX: R00.0 Tachycardia, unspecified (principal)
CPT/HCPCS: 93225; 93226

== ENCOUNTER → 2019-02-05 13:21 | Outpatient (CLI) | payer MEDICAID, SELFPAY ==
[2019-01-28 10:04] VITALS: BMI 21.9
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
== END ==
PROVIDERS: Family Provider Internal Medicine; PCP Internal Medicine; Referring Provider Internal Medicine; Visit Provider Internal Medicine
DX: M25.511 Pain in right shoulder (principal)
CPT/HCPCS: 73030

== ENCOUNTER → 2019-02-24 16:10 | Outpatient (CLI) | payer MEDICAID, SELFPAY ==
[2019-02-05 15:35] VITALS: BMI 21.9
[2019-02-24 18:04] LABS: Absolute Lymphocyte Count 2.17 X10^3/uL (0.83-4.51); Absolute Neutrophil Count 1.6 X10^3/uL (2.0-7.7); Basophil# 0.05 X10^3/uL; Basophil% 1.1 % (0-1); Eosinophil# 0.17 X10^3/uL; Eosinophils% 3.8 % (0-5); Hematocrit 39.8 % (37-47); Hemoglobin 12.8 g/dL (12.0-15.0); Lymphocyte # 2.17 X10^3/ul (4.0); Lymphocyte % 48.3 % (19-41); Mean Corp Hgb Conc 32.2 g/dL (32-36); Mean Corpuscular Hgb 28.8 pg (27.0-32.0); Mean Corpuscular Volume 89.4 fL (81-99); Mean Platelet Vol. 10.3 fl (6.2-12.0); Monocyte# 0.46 X10^3/uL; Monocyte% 10.2 % (0-10); NRBC Flagged by Analyzer 0 % (0-5); Neutrophil # 1.63 X10^3/uL (2.7-7.7); Neutrophil % 36.4 % (47-70); Platelet Count 240 K/mm3 (150-450); RBC Distribution Width CV 12.6 % (11.6-14.6); RBC Distribution Width SD 41.5 fl (35.1-43.9); Red Blood Count 4.45 M/mm3 (4.2-5.4); White Blood Count 4.5 K/mm3 (4.4-11.0)
[2019-02-24 18:46] LABS: AST(SGOT) 14 U/L (15-37); Alanine Aminotransfer ALT/SGPT 21 U/L (13-56); Albumin, Serum 3.9 g/dL (3.2-5.0); Alkaline Phosphatase 73 U/L (45-117); Anion Gap 4 (5-15); BUN 15 mg/dL (7-18); BUN/Creat Ratio 18.8 RATIO (10-20); Bilirubin, Direct 0.14 mg/dL (0.00-0.30); Calcium,Total 8.6 mg/dL (8.5-10.1); Chloride 110 mmol/L (98-107); EST Glomerular Filtration Rate 95 mL/min (>60); Est Glom Filt Rate - Afr Amer 115 mL/min (>60); Globulin 3.4 g/dL (2.2-4.2); Glucose 85 mg/dL (74-106); Potassium 4.2 mmol/L (3.5-5.1); Protein, Total 7.3 g/dL (6.4-8.2); Sodium Level 141 mmol/L (136-145); T4 Free Direct 1.15 ng/dL (0.76-1.46); Thyroid Stim Hormone (TSH) 0.71 uIU/mL (0.358-3.74)
[2019-02-26 05:06] LABS: HEPATITIS B SURFACE AG Negative (Negative); Hepatitis A AB, Total Positive (Negative); Hepatitis A IgM Antibody Negative (Negative); Hepatitis B Core AB IgM Negative (Negative); Hepatitis B Core Ab Total Negative (Negative); Hepatitis C Ab <0.1 s/co ratio (0.0-0.9)
[2019-02-26 11:41] LABS: Hep B Surface Antibodies Reactive (.)
== END ==
PROVIDERS: Family Provider Internal Medicine; PCP Internal Medicine; Referring Provider Dermatology; Visit Provider Dermatology
DX: L29.8 Other pruritus (principal); L08.9 Local infection of the skin and subcutaneous tissue, unspecified; L81.8 Other specified disorders of pigmentation
CPT/HCPCS: 36415; 80048; 80076; 84439; 84443; 85025; 86704; 86705; 86706; 86708; 86709; 86803; 87340

== ENCOUNTER 2019-04-16 23:58 | Emergency (ER) | payer MEDICAID, SELFPAY ==
[2019-03-18 15:46] VITALS: BMI 21.9
[2019-04-16 23:59] VITALS: BP 150/95; PULSE 110; RESP 18; TEMP 36.7; O2SAT 96; BMI 22.3
--- NOTE | 2019-04-17 01:28 | ED.DCSUM_ITS ---
History of Present Illness Chief Complaint: Headache Narrative: Patient is a 24-year-old female who presents with chief complaint of migraine. She does have a history of prior similar headaches although today's is more severe. She has never had to seek treatment in the emergency department for headaches previously. Her current headache began about 2 to 3 hours ago and worsened over the course of 30 minutes. She describes it as sharp initially but is now diffuse and throbbing. It is similar in character to previous headaches. She also complains of nausea and photophobia which is also typical of her previous headaches. No head injury no trauma. No fevers. She had a recent URI-like illness with congestion rhinorrhea and cough although this is improving. Past Medical History - Allergies and Home Meds Allergies/Adverse Reactions: Allergies brompheniramine maleate [From Dimetapp (brompheniramine-PPA)] Allergy (Verified 04/17/19 00:01) Hives mupirocin Allergy (Verified 04/17/19 00:01) Swelling phenylpropanolamine HCl [From Dimetapp (brompheniramine-PPA)] Allergy (Verified 04/17/19 00:01) Hives Primary Care Physician: Vinny Duggan MD [Primary Care Provider] - Past Medical History: None Smoking Status: Current every day smoker Review of Systems All systems negative except as indicated General: Denies: Fever Eyes: Reports: - - Photophobia ENT: Reports: - - Congestion, rhinorrhea Respiratory: Reports: Cough Gastrointestinal: Reports: Nausea. Denies: Abdominal pain, Vomiting Musculoskeletal: Denies: Myalgias, Arthralgias Skin: Denies: Rash Neurological: Reports: Headache Hematologic: Denies: Easy bruising, Easy bleeding Allergy: Denies: Uticaria Physical Exam Vital Signs/Narrative: Vital Signs Temp Pulse Resp BP Pulse Ox 04/16/19 23:59 98.0 F 110 H 18 150/95 H 96 Inital Vital Signs reviewed: Yes General: Well nourished, Well developed Head: Normocephalic, Atraumatic Eyes: Perrl, EOMI ENT: Moist mucous membranes Neck: Supple Cardiovascular: Regular rate, Regular rhythm Respiratory: No distress, CTA bilaterally Abdomen: Soft Skin: Normal color Neurological: Alert, Oriented x3, Normal Strength, Normal Sensation Psychological: Normal affect Diagnostic/Tx/Re-eval - Medical Decision Making Patient has a history of prior similar headaches. She does not appear to be in distress. She has a normal neurological exam. Therefore do not feel imaging is necessary. She wanted to avoid an IV. Therefore she was treated with intramusc ular Toradol and oral Reglan. Patient does report improvement on re-evaluation. She wants to go home. She understands to return for new or worsening symptoms and was discharged home. ED Disposition - Plan for ED Patient: Disposition: Home or Assisted Living Diagnosis: Headache Instructions: HEADACHE, Unspecified Referrals: Vinny Duggan MD [Primary Care Provider] -
[2019-04-17] MEDS: Metoclopramide 10 MG Tablet PO (01:54)
[2019-04-17] MEDS: Ketorolac 60 MG/2 ML Vial IM (01:59)
[2019-04-17 02:20] VITALS: BP 119/81; RESP 15
[2019-04-17 02:25] VITALS: BP 119/81; PULSE 100; RESP 15; O2SAT 97
== END 2019-04-17 02:35 | disposition home or self-care (01) ==
PROVIDERS: Emergency Provider Emergency Medicine; Family Provider Internal Medicine; PCP Internal Medicine
DX: R51 Headache (principal); F17.200 Nicotine dependence, unspecified, uncomplicated
CPT/HCPCS: 96372; 99283

== ENCOUNTER → 2019-05-14 15:11 | Outpatient (CLI) | payer MEDICAID, SELFPAY ==
[2019-05-14 14:38] VITALS: BMI 22.3
[2019-05-14 16:50] LABS: HIV - WCH Non-Reactive (Nonreactive)
[2019-05-14 22:19] LABS: Chlamydia Trachomatis by PCR Negative (Negative); Neisserai gonorrhoeae by PCR Negative (Negative); Probe Check PASS; Sample Adequacy Control PASS; Specimen Processing Control PASS
[2019-05-18 16:07] LABS: HCV Quant. RNA PCR HCV Not Detected IU/mL (.)
[2019-05-19 10:31] LABS: HSV 1 IgG > 62.20 index (0.00-0.90); HSV 2 IgG 5.42 index (0.00-0.90); Hepatitis Be Ab Negative (Negative)
[2019-05-19 18:44] LABS: HPV Reflexed? NOT INDICATED
[2019-05-21 02:55] LABS: Rapid Plasmin Reagin (RPR) NONREACTIVE (NONREACTIVE)
== END ==
PROVIDERS: Family Provider Internal Medicine; PCP Internal Medicine; Referring Provider Nurse Practitioner Women's Health; Visit Provider Nurse Practitioner Women's Health
DX: Z11.3 Encounter for screening for infections with a predominantly sexual mode of transmission (principal); Z12.4 Encounter for screening for malignant neoplasm of cervix
CPT/HCPCS: 86592; 86695; 86696; 86703; 86707; 87491; 87522; 87591; 88175; G0145

== ENCOUNTER → 2019-06-01 13:22 | Outpatient (CLI) | payer MEDICAID, SELFPAY ==
[2019-05-14 14:38] VITALS: BMI 22.3
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
== END ==
PROVIDERS: Family Provider Internal Medicine; PCP Internal Medicine; Referring Provider Nurse Practitioner Women's Health; Visit Provider Nurse Practitioner Women's Health
DX: R10.2 Pelvic and perineal pain (principal)
CPT/HCPCS: 76830; 76856; 93976

== ENCOUNTER 2020-03-22 13:50 | Emergency (ER) | payer MEDICAID, SELFPAY ==
[2019-08-20 13:18] VITALS: BMI 23.1
[2020-03-22 13:51] VITALS: BP 145/104; PULSE 124; RESP 20; TEMP 36.5; O2SAT 100; BMI 22.3
--- NOTE | 2020-03-22 14:00 | CM.ED ---
Social Work Consult: Unintentional Heroin Overdose Informant: Dr. Ruiz Met with patient in room. Introduced self and social work job titles role. Patient agreeable to speak with this social work job titles. Patient reports to use Heroin daily and sometimes Meth. Patient reports history of Anxiety, Depression, and Bi-polar. Patient reports to have a history of counseling services through various providers including [facility] and [facility]. Patient denies suicidal thoughts/plans/intents or history of. Patient reports to have relapsed in 2019 due to my dad having another did. Patient reports I still need my parent. Patient reports to live with ex-girlfriend Marley. Patient reports support from Marley but she does not like me using. Patient did report to have had an appointment with psychiatric services through the counseling center today and to have now missed appointment due to overdose today. Patient reports I have not been doing well. Patient denies active counseling services. Patient reports to have transportation and housing. Patient reports to be unemployed. This social work job titles broached topic of support for patient. Patient is not sure about going through detox currently. Patient is open to outpatient resources and information on substance abuse. This social work job titles provided patient with local substance abuse resources. Patient reports to be contemplating being admitted to [facility] program and plans to updated medical team if patient would like to be admitted. Active support and listening provided. Patient aware of walk in policy at [facility]. Updated Dr. Ruiz on above. Candis Carlos MSW, IDA
--- NOTE | 2020-03-22 14:01 | ED.VIS.GEN ---
History of Present Illness Chief Complaint: Overdose Detail of Chief Complaint: Respiratory arrest due to IV drug use Informant: Patient Onset: Hours Context: Sudden Onset Timing: Intermittent Quality: Rapid response was called main entrance Location: Patient per officer was dropped off Current Severity: Mild Maximum Severity: Severe Worsened by: IV heroin Relieved by: Spontaneous Associated Symptoms: Unresponsiveness with respiratory arrest Narrative: Patient is a 25-year-old with history of IV drug use. She is had skin infection in the past. She denies endocarditis. She denies HIV. She denies history of hepatitis. She does not recall many things. She does admit to injecting right forearm. Patient denies headache. She denies visual, ocular auditory symptoms. She denies chest pain. She does report port pounding in her chest. She denies shortness of breath. Denies nausea, vomiting diarrhea. She has constipation. Denies urologic symptoms. She does not believe she has an infection and injection sites. Prior similar symptoms: No Recent Illness/Hospitalization: No - Past Medical History (1) IV heroin use Status: Acute (2) Dysmenorrhea Status: Acute (3) Asthma Status: Chronic (4) Depression with anxiety Status: Chronic (5) Inappropriate sinus tachycardia Status: Chronic (6) Nicotine dependence Status: Chronic Past Medical History - Allergies and Home Meds Allergies/Adverse Reactions: Allergies brompheniramine maleate [From Dimetapp (brompheniramine-PPA)] Allergy (Verified 08/20/19 13:19) Hives mupirocin Allergy (Verified 08/20/19 13:19) Swelling phenylpropanolamine HCl [From Dimetapp (brompheniramine-PPA)] Allergy (Verified 08/20/19 13:19) Hives Primary Care Physician: Vinny Duggan MD [Primary Care Provider] - Prior records reviewed: Yes Surgical History: noncontributory Lives: Alone Smoking Status: Current every day smoker Alcohol: Occasional Drugs: Heroin Review of Systems General: Reports: Malaise, Sweats. Denies: Chills, Fever, Subjective Eyes: Reports: Visual changes - bilaterally. Denies: Blurred Vision - bilaterally, Diplopia ENT: Denies: Bilateral ear pain, Rhinorrhea, Sore throat Cardiovascular: Reports: Palpitations. Denies: Chest pain Respiratory: Denies: Dyspnea, Cough, Dyspnea on exertion Gastrointestinal: Denies: Abdominal pain, Nausea, Vomiting, Diarrhea Genitourinary: Denies: Dysuria, Hematuria, Frequency Musculoskeletal: Denies: Myalgias, Arthralgias, Neck pain, Back pain, Swelling, Extremity Pain Skin: Reports: - - [place] and injection sites. Denies: Rash, Abscess, Abrasions Neurological: Reports: Weakness. Denies: Headache Psych: Reports: Depression Hematologic: Denies: Easy bruising, Easy bleeding Physical Exam Vital Signs/Narrative: Vital Signs Temp Pulse Resp BP Pulse Ox 03/22/20 13:51 97.7 F L 124 H 20 H 145/104 H 100 Inital Vital Signs reviewed: Yes General: Well nourished, Well developed Head: Normocephalic, Atraumatic Eyes: Perrl, EOMI. Negative for: Pale conjunctiva ENT: Negative for: Moist mucous membranes, No rhinorrhea, TM's clear Neck: Negative for: Supple, Nontender, No lymphadenopathy, No JVD Cardiovascular: Regular rhythm, No murmurs, Normal S1, Tachycardia Respiratory: No distress, CTA bilaterally, Chest nontender Abdomen: Soft, Nontender, Nondistended, Normal bowel sounds Rectal: Deferred Back: Nontender, Normal Inspection Extremities: Nontender, No edema, - - Audible track lyon upper extremities. Fresh track lyon/injection sites noted with mild bruising. There is no evidence of infection. Skin: Normal color, No rash Neurological: Alert, Oriented x3, Cranial nerves II-XII grossly intact, Normal Strength, Normal Sensation, Normal DTR Psychological: Tearful Diagnostic/Tx/Re-eval Laboratory Results 03/22/20 03/22/20 03/22/20 14:15 14:15 14:15 WBC 7.9 RBC 4.24 Hgb 12.0 Hct 37.7 MCV 88.9 MCH 28.3 MCHC 31.8 L RDW Std Deviation 38.5 RDW Coeff of Jinny 12.0 Plt Count 202 MPV 10.4 Immature Gran % (Auto) 0.300 Neut % (Auto) 69.7 Lymph % (Auto) 21.1 [place] % (Auto) 6.6 Eos % (Auto) 2.0 Baso % (Auto) 0.3 Absolute Neuts (auto) 5.5 Absolute Lymphs (auto) 1.67 Nucleated RBC % 0 Sodium 141 Potassium 3.4 L Chloride 114 H Carbon Dioxide 23.0 Anion Gap 4 L BUN 7 Creatinine 0.79 Estim Creat Clear Calc 95.64 Est GFR (MDRD) Af Amer 116 Est GFR (MDRD) Non-Af 96 BUN/Creatinine Ratio 8.9 L Glucose 158 H Calcium 8.0 L Total Bilirubin 0.30 AST 12 L ALT 16 Alkaline Phosphatase 94 Total Protein 6.5 Albumin 3.4 Globulin 3.1 Albumin/Globulin Ratio 1.1 Serum , Qual Ur Drug Screen Comment Ethyl Alcohol 5.0 03/22/20 03/22/20 14:15 14:50 WBC RBC Hgb Hct MCV MCH MCHC RDW Std Deviation RDW Coeff of Jinny Plt Count MPV Immature Gran % (Auto) Neut % (Auto) Lymph % (Auto) [place] % (Auto) Eos % (Auto) Baso % (Auto) Absolute Neuts (auto) Absolute Lymphs (auto) Nucleated RBC % Sodium Potassium Chloride Carbon Dioxide Anion Gap BUN Creatinine Estim Creat Clear Calc Est GFR (MDRD) Af Amer Est GFR (MDRD) Non-Af BUN/Creatinine Ratio Glucose Calcium Total Bilirubin AST ALT Alkaline Phosphatase Total Protein Albumin Globulin Albumin/Globulin Ratio Serum , Qual NEGATIVE Ur Drug Screen Comment Ethyl Alcohol - Medical Decision Making Patient is requesting detox. She is never been in detox. She is frightened. Had social media assistant see her and determine if there is inpatient treatment available or not. Appropriate work-up was initiated. Case management did see patient. Patient was spoken to at [phone]. After discussion she would like inpatient detox. For this reason we will contact hospitalist for admission. ED Disposition - Plan for ED Patient: Disposition: Acute Care Hospital [facility] Diagnosis: Respiratory arrest, Accidental heroin overdose Referrals: Vinny Duggan MD [Primary Care Provider] -
[2020-03-22 14:34] LABS: Absolute Lymphocyte Count 1.67 X10^3/uL (0.83-4.51); Absolute Neutrophil Count 5.5 X10^3/uL (2.0-7.7); Basophil# 0.02 X10^3/uL; Basophil% 0.3 % (0-1); Eosinophil# 0.16 X10^3/uL; Hematocrit 37.7 % (37-47); Lymphocyte # 1.67 X10^3/ul (4.0); Lymphocyte % 21.1 % (19-41); Mean Corp Hgb Conc 31.8 g/dL (32-36); Mean Corpuscular Hgb 28.3 pg (27.0-32.0); Mean Corpuscular Volume 88.9 fL (81-99); Mean Platelet Vol. 10.4 fl (6.2-12.0); Monocyte# 0.52 X10^3/uL; Monocyte% 6.6 % (0-10); NRBC Flagged by Analyzer 0 % (0-5); Neutrophil # 5.53 X10^3/uL (2.7-7.7); Neutrophil % 69.7 % (47-70); Platelet Count 202 K/mm3 (150-450); RBC Distribution Width SD 38.5 fl (35.1-43.9); Red Blood Count 4.24 M/mm3 (4.2-5.4); White Blood Count 7.9 K/mm3 (4.4-11.0)
[2020-03-22 14:37] LABS: Internal QC Validated? YES +Cl - CLEAR BKGD; Pregnancy, Serum, hCG Quali. NEGATIVE Negative
[2020-03-22 14:46] LABS: ALB/GLOB Ratio 1.1 RATIO (0.9-2.4); AST(SGOT) 12 U/L (15-37); Alanine Aminotransfer ALT/SGPT 16 U/L (13-56); Albumin, Serum 3.4 g/dL (3.2-5.0); Alkaline Phosphatase 94 U/L (45-117); Anion Gap 4 (5-15); BUN 7 mg/dL (7-18); BUN/Creat Ratio 8.9 RATIO (10-20); Chloride 114 mmol/L (98-107); Creatinine, Serum 0.79 mg/dL (0.55-1.02); EST Glomerular Filtration Rate 96 mL/min (>60); Est Glom Filt Rate - Afr Amer 116 mL/min (>60); Estimated Creatinine Clearance 95.64 ml/min; Globulin 3.1 g/dL (2.2-4.2); Glucose 158 mg/dL (74-106); Potassium 3.4 mmol/L (3.5-5.1); Protein, Total 6.5 g/dL (6.4-8.2); Sodium Level 141 mmol/L (136-145)
[2020-03-22 15:15] LABS: Amphetamine Urine VISTA POSITIVE (<1000 ng/mL); Barbiturate Urine VISTA NEGATIVE (< 200 ng/mL); Benzodiazepine Urine VISTA NEGATIVE (< 200 ng/mL); Cocaine Urine VISTA NEGATIVE (< 300 ng/mL); Ecstacy Urine VISTA POSITIVE (< 500 ng/mL); Methadone Urine VISTA NEGATIVE (< 300 ng/mL); PCP Urine VISTA NEGATIVE (< 25 ng/mL); THC Urine VISTA NEGATIVE (< 50 ng/mL); Vista UDS pH Range 6
[2020-03-22 15:26] LABS: Bedside Glucose 180 mg/dL (70-110)
[2020-03-22 16:01] VITALS: BP 131/95; PULSE 119; RESP 19; O2SAT 97
--- NOTE | 2020-03-22 16:26 | ED.DCSUM_ITS ---
- ER Visit Summary Date of Service: 03/22/20 Chief Complaint: [] History of Present Illness: The patient is a 25 F [] Physical Examination: [] Test Results: [] Emergency Department Course and Treatment: [] Treatment Plan: [] Disposition: [] Impression: [] This note was generated with [employer] software. It may contain incorrect words, spelling, and punctuation that were not noted in review of the chart prior to signing ED Disposition - Plan for ED Patient: Disposition: Against Medical Advice Diagnosis: Respiratory arrest, Accidental heroin overdose Instructions: ED Overdose Opiate, [place] Form- 1 Referrals: Vinny Duggan MD [STAFF PHYSICIAN] - [facility] [STAFF PHYSICIAN] - As soon as possible
--- NOTE | 2020-03-22 16:26 | NURSING ---
MED SURG RESP ARREST DUE TO IV HEROIN NICOLAS
== END 2020-03-22 16:56 | disposition left against medical advice (07) ==
PROVIDERS: Emergency Provider Emergency Medicine
DX: R09.2 Respiratory arrest (principal); T40.1X1A Poisoning by heroin, accidental (unintentional), initial encounter; F17.200 Nicotine dependence, unspecified, uncomplicated; J45.909 Unspecified asthma, uncomplicated; K59.00 Constipation, unspecified
CPT/HCPCS: 80053; 80307; 80320; 82962; 84703; 85025; 99281; 99282; J7030; A4216; G0480

== ENCOUNTER 2020-05-07 00:29 | Emergency (ER) | payer MEDICAID, SELFPAY ==
[2020-04-14 13:22] VITALS: BMI 21.5
[2020-05-07 00:30] VITALS: BP 122/93; PULSE 113; RESP 16; TEMP 36.3; O2SAT 100; BMI 23.1
[2020-05-07 00:32] VITALS: BP 122/93; PULSE 113; RESP 16; TEMP 36.3; O2SAT 100
--- NOTE | 2020-05-07 01:01 | ED.VIS.GEN ---
History of Present Illness Chief Complaint: Abscess Informant: Patient Narrative: Stated for the last 24 she developed an abscess proximal knuckle of her right long finger. She is noticed some mild drainage which is green. It is on the inside aspect of the back of the finger. Mild swelling and pain. She had a paronychia a week ago on the same finger but that has healed up. Last IV drug use was 2 weeks ago. Denies any fevers or chills or systemic symptoms. She has had abscess in the past. Current severity is mild. No home treatment other than putting a potato on it. She stated she thought that would work because she read that on and on it. - Past Medical History (1) Dysmenorrhea Status: Acute (2) IV heroin use Status: Acute (3) Lightheadedness Status: Acute (4) Swelling of lower extremity Status: Acute (5) Asthma Status: Chronic (6) Depression with anxiety Status: Chronic (7) Inappropriate sinus tachycardia Status: Chronic (8) Nicotine dependence Status: Chronic Past Medical History - Allergies and Home Meds Allergies/Adverse Reactions: Allergies brompheniramine maleate [From Dimetapp (brompheniramine-PPA)] Allergy (Verified 05/07/20 00:35) Hives mupirocin Allergy (Verified 05/07/20 00:35) Swelling phenylpropanolamine HCl [From Dimetapp (brompheniramine-PPA)] Allergy (Verified 05/07/20 00:35) Hives Primary Care Physician: Vinny Duggan MD [Primary Care Provider] - Prior records reviewed: Yes Past Medical History: - - See problem list Surgical History: noncontributory Lives: With Family Smoking Status: Current every day smoker Alcohol: None Drugs: Heroin Review of Systems General: Denies: Chills, Fever, Sweats Eyes: Denies: Visual changes - bilaterally, Diplopia ENT: Denies: Rhinorrhea, Sore throat Cardiovascular: Denies: Chest pain, Palpitations Respiratory: Denies: Dyspnea, Cough, Dyspnea on exertion Gastrointestinal: Denies: Abdominal pain, Nausea, Vomiting, Diarrhea, Melena, Hematochezia Genitourinary: Denies: Dysuria, Hematuria, Frequency Musculoskeletal: Denies: Back pain, Extremity Pain Skin: Reports: Abscess. Denies: Rash, Wounds Neurological: Denies: Headache, Weakness, Numbness Physical Exam Vital Signs/Narrative: Vital Signs Temp Pulse Resp BP Pulse Ox 05/07/20 00:32 97.4 F L 113 H 16 122/93 H 100 05/07/20 00:30 97.4 F L 113 H 16 122/93 H 100 General: Well nourished, Well developed, No Acute Distress Head: Normocephalic, Atraumatic Eyes: Perrl, EOMI ENT: Moist mucous membranes, No rhinorrhea Neck: Supple, Nontender Cardiovascular: Regular rate, Regular rhythm, No murmurs Respiratory: No distress, CTA bilaterally, Chest nontender Abdomen: Soft, Nontender, Nondistended, Normal bowel sounds Back: Nontender, Normal Inspection Extremities: - - Skin exam. Negative for: Nontender, No edema Skin: - - Patient has a superficial abscess over the thenar portion of the posterior first knuckle. It is 2 x 2 cm. There is a head on it. No proximal spread or cellulitis. She has a healing paronychia on the same finger.. Negative for: Normal color, No rash Neurological: Alert, Oriented x3, Cranial nerves II-XII grossly intact, Normal Strength, Normal Sensation Psychological: Normal affect, Normal Mood Diagnostic/Tx/Re-eval - Medical Decision Making Patient given a dose of IV vancomycin. Patient consented for I&D of an abscess on her knuckle. Wound was cleansed with chlorhexidine and anesthetized with 3 cc of 1% lidocaine with good anesthesia. The top was removed with tweezers. There was a small mild purulent drainage. The central ulceration of the abscess was then incised and drained with an 11 blade. This is lateral to the posterior portion of the knuckle. I do not feel this is a septic joint. It is only involving the superficial of the dorsal lateral portion of the finger. She is moving her finger without pain. On the undersurface of the knuckle there is no involvement. She be discharged with Bactrim and Keflex. She will continue warm water rinses and squeezing it and using topical antibiotic and follow-up as an outpatient and return if she worsens ED Disposition - Plan for ED Patient: Disposition: Home or Assisted Living Diagnosis: Skin abscess Instructions: ED Abscess Incision And Drainage, ED Staph Skin Infection, Possible MRSA Prescriptions: Smz/Tmp Ds [Bactrim Ds] 1 tab PO BID #20 tab Transmission Status: Pending to [facility] #30 Cephalexin [Keflex] 500 mg PO Q6 #40 cap Transmission Status: Pending to [facility] #30 Referrals: Vinny Duggan MD [Primary Care Provider] -
[2020-05-07] MEDS: Vancomycin IV 1,000 MG/200 ML BAG 200 MG IV (01:28)
[2020-05-07] MEDS: Lidocaine 1% (20 ml mdv) 20 ML Vial INFILT (01:28)
[2020-05-07 02:49] VITALS: BP 121/80; PULSE 92; RESP 18; O2SAT 96
== END 2020-05-07 02:50 | disposition home or self-care (01) ==
PROVIDERS: Emergency Provider Emergency Medicine; PCP Internal Medicine
DX: L02.511 Cutaneous abscess of right hand (principal); J45.909 Unspecified asthma, uncomplicated; F17.200 Nicotine dependence, unspecified, uncomplicated; F41.8 Other specified anxiety disorders
CPT/HCPCS: 26010; 10060; 96365; 96366; 99282; J7050; A4216

== ENCOUNTER 2021-05-07 05:13 | Emergency (ER) | payer MEDICAID, SELFPAY ==
[2021-05-07 05:14] VITALS: PULSE 128; RESP 18; TEMP 36.4; O2SAT 100; BMI 19.3
[2021-05-07 05:17] VITALS: BP 135/81; PULSE 128; RESP 18; TEMP 36.4; O2SAT 100
--- NOTE | 2021-05-07 05:45 | EX.ED.DYSGE1 ---
HPI History of Present Illness Chief Complaint: Abscess Informant: patient Onset/Context/Timing Onset: Days Context: Gradual Onset Current Severity: Moderate Maximum Severity: Severe Narrative Narrative: Patient presents with an abscess to the right forearm with lymphangitic streaking. She states she noticed it a couple days ago. She is an IV drug user. She denies fever. [facility] Medical History (Updated 05/07/21 @ 07:[address] Renée Villagomez MD) Anxiety and depression Asthma Depression with anxiety Drug abuse Gallstones History of drug dependence/abuse Inappropriate sinus tachycardia Nicotine dependence Tachycardia Home Medications cephalexin 500 mg PO Q6H 10 Days #40 cap 05/07/21 [Rx Last Taken Unknown] hydrocodone-acetaminophen 1 tab PO Q6H PRN 3 Days #10 tab 05/07/21 [Rx Last Taken Unknown] sulfamethoxazole-trimethoprim [Bactrim DS] 1 tab PO BID #20 tab 05/07/21 [Rx Last Taken Unknown] Allergy/AdvReac Type Severity Reaction Status Date / Time brompheniramine maleate Allergy Hives Verified 05/07/21 05:18 [From Dimetapp (brompheniramine-PPA)] mupirocin Allergy Swelling Verified 05/07/21 05:18 phenylpropanolamine HCl Allergy Hives Verified 05/07/21 05:18 [From Dimetapp (brompheniramine-PPA)] Family History Father Depression Anxiety Grandmother Heart disease Depression Hypertension Grandmother Breast cancer Surgical History History of placement of ear tubes History of tonsillectomy and adenoidectomy Social History Smoking Status: Current every day smoker tobacco type: cigarettes alcohol intake: never substance use type: former substance user what type of physical activity do you participate in: none ROS ROS ED Constitutional Constitutional ED: Denies chills or fever(s) Eyes Eyes: Denies change in vision ENT ENT ED: Denies sore throat Cardiovascular Cardiovascular: Denies chest pain Respiratory/Chest Respiratory/Chest: Denies cough or dyspnea Gastrointestinal Gastrointestinal: Denies abdominal pain, nausea or vomiting Genitourinary Genitourinary ED: Denies dysuria Musculoskeletal Musculoskeletal: Denies back pain Integumentary Reports abscess; Denies rash Neurologic Neurologic: Denies headache(s) or weakness Allergic/Immunologic Allergic/Immunologic ED: Denies urticaria EXAM Physical Exam Const Vital Signs: 05/07/21 05:14 05/07/21 05:17 Temperature 97.5 F L 97.5 F L Temperature Source Temporal Temporal Pulse Rate 128 H 128 H Respiratory Rate 18 18 Blood Pressure 135/81 H Blood Pressure Mean 99 Pulse Ox 100 100 Positive well nourished and well developed General Appearance ED: well developed HEENT Reports normocephalic and head/scalp atraumatic Eyes PERRL and EOMs intact bilaterally Neck supple Chest Wall inspection of chest normal and palpation of chest normal Resp normal respiratory effort and clear to auscultation bilaterally Cardio regular rate and regular rhythm GI non-tender Palpation: soft Back/Spine no CVA tenderness Extremity Extremity Narrative: 6.8 cm cutaneous abscess over the right forearm. Lymphangitic streaking noted up to the mid portion of the upper arm. Strong distal pulses with full range of motion at the wrist and elbow. Neuro oriented x3 and no sensory deficits noted Sensorium / Orientation: alert Motor Exam: strength 5/5 throughout Psych mental status grossly normal MDM MDM MDM Narrative Medical decision making narrative: Lab work and blood cultures obtained. Patient given IV vancomycin. Lab Data Attestation: I reviewed the patient's lab results. Labs: Laboratory Results - last 24 hr 05/07/21 05/07/21 05/07/21 05:35 05:35 05:35 WBC 13.0 H RBC 4.63 Hgb 11.8 L Hct 38.5 MCV 83.2 MCH 25.5 L MCHC 30.6 L RDW Std Deviation 43.2 RDW Coeff of Jinny 14.2 Plt Count 297 MPV 10.2 Immature Gran % (Auto) 0.400 Neut % (Auto) 75.0 H Lymph % (Auto) 15.8 L [place] % (Auto) 8.0 Eos % (Auto) 0.5 Baso % (Auto) 0.3 Absolute Neuts (auto) 9.8 H Absolute Lymphs (auto) 2.05 Nucleated RBC % 0 Sodium 137 Potassium 3.9 Chloride 105 Carbon Dioxide 26.0 Anion Gap 6 BUN 11 Creatinine 0.98 Estim Creat Clear Calc 71.37 Est GFR (MDRD) Af Amer 90 Est GFR (MDRD) Non-Af 74 BUN/Creatinine Ratio 11.2 Glucose 119 H Lactic Acid 2.0 Calcium 8.9 Serum , Qual 05/07/21 05:35 WBC RBC Hgb Hct MCV MCH MCHC RDW Std Deviation RDW Coeff of Jinny Plt Count MPV Immature Gran % (Auto) Neut % (Auto) Lymph % (Auto) [place] % (Auto) Eos % (Auto) Baso % (Auto) Absolute Neuts (auto) Absolute Lymphs (auto) Nucleated RBC % Sodium Potassium Chloride Carbon Dioxide Anion Gap BUN Creatinine Estim Creat Clear Calc Est GFR (MDRD) Af Amer Est GFR (MDRD) Non-Af BUN/Creatinine Ratio Glucose Lactic Acid Calcium Serum , Qual NEGATIVE Treatment and Re-Evaluation Comments:: Lab work reveals white count elevated at 13.0 with slight left shift. Lactic acid is 2. Bedside ultrasound was used over the abscess area. I do not appreciate any vascular structures through the abscess. Skin is anesthetized with 3 cc 1% lidocaine. Incision made with #11 blade. Return of pus noted. Loculations broken up with curved hemostats. Quarter inch iodoform gauze packing placed. The lymphangitic streak initially noted on the patient's arm is significantly improved at this time. It is outlined. Patient be discharged on antibiotics with instructions to closely monitor this. If lymphangitic streaking extends beyond the area of the outline she is to return for IV antibiotics. She voices understanding and agreement. Discharge Plan Triage Chief Complaint: Abscess ED Provider: Renée Villagomez Dx/Rx/DC Orders Clinical Impression: Cutaneous abscess Instructions: ED Abscess Incision And Drainage Prescriptions: New sulfamethoxazole-trimethoprim [Bactrim DS] 800-160 mg tablet 1 tab PO BID Qty: 20 RF: 0 cephalexin 500 mg capsule 500 mg PO Q6H 10 Days Qty: 40 RF: 0 hydrocodone-acetaminophen 5-325 mg tablet 1 tab PO Q6H PRN (Reason: pain) 3 Days Qty: 10 RF: 0 Primary Care Provider: Vinny Duggan Referrals: Vinny Duggan MD [Primary Care Provider] - 3-5 Days Activity Restrictions/Additional Instructions: Please follow-up with Dr. Duggan in the next 3 to 5 days. Packing from your wound will be removed at that time. As discussed, if you notice increased redness around the area of outline please return to the emergency room immediately. Please complete your entire course of antibiotics. Disposition Disposition: Home, Self Care
[2021-05-07 06:10] LABS: Absolute Lymphocyte Count 2.05 X10^3/uL (0.83-4.51); Absolute Neutrophil Count 9.8 X10^3/uL (2.0-7.7); Basophil# 0.04 X10^3/uL; Basophil% 0.3 % (0-1); Eosinophil# 0.06 X10^3/uL; Eosinophils% 0.5 % (0-5); Hematocrit 38.5 % (37-47); Hemoglobin 11.8 g/dL (12.0-15.0); Lymphocyte # 2.05 X10^3/ul (0.83-4.51); Lymphocyte % 15.8 % (19-41); Mean Corp Hgb Conc 30.6 g/dL (32-36); Mean Corpuscular Hgb 25.5 pg (27.0-32.0); Mean Corpuscular Volume 83.2 fL (81-99); Mean Platelet Vol. 10.2 fl (6.2-12.0); Monocyte# 1.04 X10^3/uL; NRBC Flagged by Analyzer 0 % (0-5); Neutrophil # 9.76 X10^3/uL (2.7-7.7); Platelet Count 297 K/mm3 (150-450); RBC Distribution Width CV 14.2 % (11.6-14.6); RBC Distribution Width SD 43.2 fl (35.1-43.9); Red Blood Count 4.63 M/mm3 (4.2-5.4)
[2021-05-07 06:20] LABS: Anion Gap 6 (5-15); BUN 11 mg/dL (7-18); BUN/Creat Ratio 11.2 RATIO (10-20); Calcium,Total 8.9 mg/dL (8.5-10.1); Chloride 105 mmol/L (98-107); Creatinine, Serum 0.98 mg/dL (0.55-1.02); EST Glomerular Filtration Rate 74 mL/min (>60); Est Glom Filt Rate - Afr Amer 90 mL/min (>60); Estimated Creatinine Clearance 71.37 ml/min; Glucose 119 mg/dL (74-106); Potassium 3.9 mmol/L (3.5-5.1); Sodium Level 137 mmol/L (136-145)
[2021-05-07 06:22] LABS: Internal QC Validated? YES +Cl - CLEAR BKGD; Pregnancy, Serum, hCG Quali. NEGATIVE Negative
[2021-05-07] MEDS: Ondansetron 4 MG/2 ML Vial IV (06:48)
[2021-05-07] MEDS: Morphine 4 MG/ML Syringe IV (06:49)
[2021-05-07] MEDS: Lidocaine 1% (20 ml mdv) 20 ML Vial INFILT (08:00)
[2021-05-07 09:59] LABS: Reflex Lactate? Y
--- NOTE | 2021-05-08 06:26 | ED.RN ---
lab called with positive blood culture results. spoke with Dr. Espinal. at this time the blood culture may be a contamination and further testing may be needed. Will follow up with other culture results. at this time
== END 2021-05-07 09:31 | disposition home or self-care (01) ==
PROVIDERS: Emergency Provider Emergency Medicine; PCP Internal Medicine; Visit Provider Emergency Medicine
DX: L02.91 Cutaneous abscess, unspecified (principal); F17.210 Nicotine dependence, cigarettes, uncomplicated
CPT/HCPCS: 10060; 80048; 83605; 84703; 85025; 87040; 87070; 87077; 87149; 87186; 87205; 96361; 96365; 96375; 99285; J7030; J7050; A4216; J2405

== ENCOUNTER 2021-05-25 14:19 | Emergency (ER) | payer MEDICAID, SELFPAY ==
[2021-05-25 14:27] VITALS: BP 130/82; PULSE 120; RESP 30; TEMP 36.6; O2SAT 97; BMI 21.5
[2021-05-25 14:34] VITALS: BP 128/78; PULSE 137; RESP 30; O2SAT 98
--- NOTE | 2021-05-25 14:43 | EKG12_ITS ---
Test Reason : Blood Pressure : / mmHG Vent. Rate : 116 BPM Atrial Rate : 116 BPM P-R Int : 118 ms QRS Dur : 076 ms QT Int : 330 ms P-R-T Axes : 063 078 049 degrees QTc Int : 458 ms Sinus tachycardia Otherwise normal ECG Confirmed by KELSI PEREZ, ANDREW ([id number]), publishing editor SRINIVASA RAVI ([id number]) on 05/26/2021 9:37:53 AM Referred By: JARET Confirmed By:ANDREW DOLAN MD
--- NOTE | 2021-05-25 14:43 | RAD_ITS ---
STUDY: X-RAY CHEST REASON FOR EXAM: Female, 26 years old. Weakness. TECHNIQUE: Single AP portable view of the chest. COMPARISON: None. FINDINGS: EKG electrodes are seen. The lungs are clear and expanded. Scattered calcified granulomas. There is no demonstrated pleural abnormality. Normal size heart. Normal mediastinum and earlene. Normal visualized pulmonary arteries. Normal visualized aortic arch and descending thoracic aorta. Normal visualized thoracic spine. Normal visualized ribs, clavicles, and shoulders. There is no demonstrated abnormality of the visualized soft tissue structures of the upper abdomen. RAD/Chest 1 View (Portable) IMPRESSION: Normal x-ray examination of the chest. Electronically Signed: Irvin Swartz MD at 15:16 EST , Service support ,
[2021-05-25 15:04] LABS: Absolute Lymphocyte Count 1.73 X10^3/uL (0.83-4.51); Absolute Neutrophil Count 4.1 X10^3/uL (2.0-7.7); Basophil# 0.03 X10^3/uL; Basophil% 0.5 % (0-1); Eosinophil# 0.02 X10^3/uL; Eosinophils% 0.3 % (0-5); Hematocrit 39.3 % (37-47); Hemoglobin 12.1 g/dL (12.0-15.0); Lymphocyte # 1.73 X10^3/ul (0.83-4.51); Lymphocyte % 27.5 % (19-41); Mean Corp Hgb Conc 30.8 g/dL (32-36); Mean Corpuscular Hgb 25.8 pg (27.0-32.0); Mean Corpuscular Volume 83.8 fL (81-99); Mean Platelet Vol. 9.5 fl (6.2-12.0); Monocyte# 0.42 X10^3/uL; Monocyte% 6.7 % (0-10); NRBC Flagged by Analyzer 0 % (0-5); Neutrophil # 4.09 X10^3/uL (2.7-7.7); Neutrophil % 64.8 % (47-70); Platelet Count 314 K/mm3 (150-450); RBC Distribution Width CV 14.6 % (11.6-14.6); RBC Distribution Width SD 44.9 fl (35.1-43.9); Red Blood Count 4.69 M/mm3 (4.2-5.4); White Blood Count 6.3 K/mm3 (4.4-11.0)
[2021-05-25 15:12] LABS: ALB/GLOB Ratio 0.8 RATIO (0.9-2.4); AST(SGOT) 48 U/L (15-37); Alanine Aminotransfer ALT/SGPT 97 U/L (13-56); Albumin, Serum 3.3 g/dL (3.2-5.0); Alkaline Phosphatase 116 U/L (45-117); Anion Gap 7 (5-15); BUN 9 mg/dL (7-18); BUN/Creat Ratio 10.6 RATIO (10-20); Calcium,Total 8.7 mg/dL (8.5-10.1); Chloride 113 mmol/L (98-107); Creatinine, Serum 0.85 mg/dL (0.55-1.02); EST Glomerular Filtration Rate 87 mL/min (>60); Est Glom Filt Rate - Afr Amer 105 mL/min (>60); Estimated Creatinine Clearance 88.13 ml/min; Glucose 134 mg/dL (74-106); Potassium 3.6 mmol/L (3.5-5.1); Protein, Total 7.3 g/dL (6.4-8.2); Sodium Level 142 mmol/L (136-145)
[2021-05-25] MEDS: 0.9% Normal Saline 1,000 ML 999 ML IV (15:15)
[2021-05-25 15:28] VITALS: BP 127/70; PULSE 117; RESP 22; O2SAT 99
[2021-05-25 15:38] LABS: Mucous, Urine 0 SEEN /hpf (<or=2+); White Blood Cells 0 SEEN /hpf (0-5)
[2021-05-25 15:57] LABS: Color, Urine Yellow (Yellow); Glucose, Dipstick Normal (Normal); Ketone-Dipstick Negative (Negative); Leukocyte Esterase-Dipstick Negative /ul (Negative); Nitrite-Dipstick Negative (Negative); Occult Blood-Urine 50 /ul (Negative); Protein-Dipstick Negative (Negative); Specific Gravity, Urine 1.025 (1.002-1.030); Urine Bilirubin Dipstick Negative (Negative); Urine Clarity Sl. Cloudy (Clear); Urine Urobilinogen Normal (Normal)
[2021-05-25 15:58] LABS: Internal QC Validated? YES +Cl - CLEAR BKGD; Pregnancy, Serum, hCG Quali. NEGATIVE Negative
[2021-05-25 16:01] LABS: Amphetamine Urine VISTA POSITIVE (<1000 ng/mL); Barbiturate Urine VISTA NEGATIVE (< 200 ng/mL); Benzodiazepine Urine VISTA NEGATIVE (< 200 ng/mL); Cocaine Urine VISTA NEGATIVE (< 300 ng/mL); Ecstacy Urine VISTA POSITIVE (< 500 ng/mL); Methadone Urine VISTA NEGATIVE (< 300 ng/mL); PCP Urine VISTA NEGATIVE (< 25 ng/mL); THC Urine VISTA NEGATIVE (< 50 ng/mL); Vista UDS pH Range 6
[2021-05-25 16:03] LABS: Bacteria RARE /hpf (None Seen); Red Blood Cells-Urine 0-5 SEEN /hpf (0-5); Squamous Epithelial Cells - UA 5-10 SEEN /hpf (5-10)
[2021-05-25 16:04] LABS: Amorphous Sediment 1+ URATE
--- NOTE | 2021-05-25 16:05 | EX.ED.SAOD ---
HPI History of Present Illness Chief Complaint: Substance Abuse Narrative Narrative: 26-year-old female presenting with muscle aches and fatigue. She states she is trying to detox herself from heroin. She has done this 3 times in the past. She is never required admission. She states that she has schizophrenia and she was just given her Invega shot 3 days ago. She states she presented because of her muscles were locking up. She denies EtOH abuse. She states currently that she is not interested in detox in the hospital. She is not suicidal or homicidal. [facility] Medical History Anxiety and depression Asthma Depression with anxiety Drug abuse Gallstones History of drug dependence/abuse Inappropriate sinus tachycardia Nicotine dependence Schizophrenia Tachycardia Home Medications dicyclomine 10 mg PO TID #20 cap 05/25/21 [Rx Last Taken Unknown] ondansetron 4 mg PO Q8H PRN PRN #20 tab 05/25/21 [Rx Last Taken Unknown] Allergy/AdvReac Type Severity Reaction Status Date / Time brompheniramine maleate Allergy Hives Verified 05/25/21 14:24 [From Dimetapp (brompheniramine-PPA)] mupirocin Allergy Swelling Verified 05/25/21 14:24 phenylpropanolamine HCl Allergy Hives Verified 05/25/21 14:24 [From Dimetapp (brompheniramine-PPA)] Family History Father Depression Anxiety Grandmother Heart disease Depression Hypertension Grandmother Breast cancer Surgical History History of placement of ear tubes History of tonsillectomy and adenoidectomy Social History Smoking Status: Current every day smoker tobacco type: cigarettes alcohol intake: never substance use type: former substance user what type of physical activity do you participate in: none ROS ROS ED Constitutional Constitutional ED: Reports sweats; Denies chills or fever(s) Eyes Eyes: Denies blurry vision or diplopia ENT ENT ED: Denies rhinorrhea or sore throat Cardiovascular Cardiovascular: Reports palpitations; Denies chest pain Respiratory/Chest Respiratory/Chest: Denies cough or dyspnea Gastrointestinal Gastrointestinal: Reports nausea; Denies abdominal pain or vomiting Genitourinary Genitourinary ED: Denies dysuria or urinary frequency Musculoskeletal Musculoskeletal: Reports myalgias; Denies arthralgias, back pain or neck pain Integumentary Denies Abrasions or rash Neurologic Neurologic: Reports headache(s); Denies paresthesias or weakness EXAM Physical Exam Const Vital Signs: 05/25/21 14:27 05/25/21 14:34 05/25/21 15:28 Temperature 97.8 F Temperature Source Oral Pulse Rate 120 H 137 H 117 H Respiratory Rate 30 H 30 H 22 H Blood Pressure 130/82 H 128/78 H 127/70 H Blood Pressure Mean 98 94 89 Pulse Ox 97 98 99 Oxygen Delivery Method Room Air Room Air Room Air 05/25/21 16:24 Temperature Temperature Source Pulse Rate 105 H Respiratory Rate 22 H Blood Pressure 115/73 Blood Pressure Mean 87 Pulse Ox 100 Oxygen Delivery Method Room Air Positive unkempt General Appearance ED: unkempt and NAD; Negative for pallor HEENT Reports dry mucous membranes atraumatic Mouth ED: Yes dry mucous membranes Mouth: dry mucous membranes Eyes PERRL and EOMs intact bilaterally General Eye ED: Negative for pale conjunctiva or scleral icterus Chest Wall inspection of chest normal and palpation of chest normal Resp clear to auscultation bilaterally Resp Narrative: Tachypneic Cardio regular rhythm Rate: tachycardic GI soft to palpation Neuro oriented x3 Sensorium / Orientation: alert Psych mental status grossly normal and thought process normal Appearance: unkempt Skin General Skin Exam: Negative for jaundice or pallor MDM MDM MDM Narrative Medical decision making narrative: Patient presenting with muscle cramps that she is trying to detox from heroin on her own. I did start IV and give her IV fluids due to her tachycardia and she is slightly sweaty. She is probably withdrawing from heroin. CBC is unremarkable. CMP shows normal renal function and electrolytes. AST is 48 and ALT is 97. Urinalysis is negative for infection. Urine drug screen is positive for methamphetamines. Chest x-ray on my interpretation shows no acute cardiopulmonary process the radiologist does agree. EKG on my interpretation shows a sinus tachycardia with a ventricular rate of 160/min without sign of ischemic change or dysrhythmia. Patient was evaluated by social work and it was confirmed that she did get her Invega shot. She is not suicidal or homicidal. She wants to try to detox at home. She was offered inpatient detox multiple times and does not want this. She is alert and awake and has somebody at the bedside who can help her. Although she has a history of schizophrenia she does appear to have capacity to make this decision. She was positive for methamphetamine and negative for opioids but she states she does do fentanyl and that is likely why its not positive. I will send her home with Sarita and Yue. She is given return precautions. Impression: 1. Opioid withdrawal 2. Methamphetamine abuse Lab Data Attestation: I reviewed the patient's lab results. Labs: Laboratory Results - last 24 hr 05/25/21 05/25/21 05/25/21 14:30 14:30 14:30 WBC 6.3 RBC 4.69 Hgb 12.1 Hct 39.3 MCV 83.8 MCH 25.8 L MCHC 30.8 L RDW Std Deviation 44.9 H RDW Coeff of Jinny 14.6 Plt Count 314 MPV 9.5 Immature Gran % (Auto) 0.200 Neut % (Auto) 64.8 Lymph % (Auto) 27.5 [place] % (Auto) 6.7 Eos % (Auto) 0.3 Baso % (Auto) 0.5 Absolute Neuts (auto) 4.1 Absolute Lymphs (auto) 1.73 Nucleated RBC % 0 Sodium 142 Potassium 3.6 Chloride 113 H Carbon Dioxide 22.0 Anion Gap 7 BUN 9 Creatinine 0.85 Estim Creat Clear Calc 88.13 Est GFR (MDRD) Af Amer 105 Est GFR (MDRD) Non-Af 87 BUN/Creatinine Ratio 10.6 Glucose 134 H Calcium 8.7 Total Bilirubin 0.40 AST 48 H ALT 97 H Alkaline Phosphatase 116 Total Protein 7.3 Albumin 3.3 Globulin 4.0 Albumin/Globulin Ratio 0.8 L Serum , Qual Urine Color Urine Clarity Urine pH Ur Specific [place] Urine Protein Urine Glucose (UA) Urine Ketones Urine Occult Blood Urine Nitrite Urine Bilirubin Urine Urobilinogen Ur Leukocyte Esterase Urine RBC Urine WBC Ur Squamous Epith Cells Amorphous Sediment Urine Bacteria Urine Mucus Urine Opiates Screen Urine Methadone Screen Ur Barbiturates Screen Ur Phencyclidine Scrn Ur Amphetamines Screen U Methamphetamin-MDMA U Benzodiazepines Scrn Urine Cocaine Screen U Cannabinoids Screen Ur Drug Screen Comment Ethyl Alcohol 5.0 05/25/21 05/25/21 05/25/21 14:30 15:01 15:01 WBC RBC Hgb Hct MCV MCH MCHC RDW Std Deviation RDW Coeff of Jinny Plt Count MPV Immature Gran % (Auto) Neut % (Auto) Lymph % (Auto) [place] % (Auto) Eos % (Auto) Baso % (Auto) Absolute Neuts (auto) Absolute Lymphs (auto) Nucleated RBC % Sodium Potassium Chloride Carbon Dioxide Anion Gap BUN Creatinine Estim Creat Clear Calc Est GFR (MDRD) Af Amer Est GFR (MDRD) Non-Af BUN/Creatinine Ratio Glucose Calcium Total Bilirubin AST ALT Alkaline Phosphatase Total Protein Albumin Globulin Albumin/Globulin Ratio Serum , Qual NEGATIVE Urine Color Yellow Urine Clarity Sl. Cloudy Urine pH 6.0 Ur Specific [place] 1.025 Urine Protein Negative Urine Glucose (UA) Normal Urine Ketones Negative Urine Occult Blood 50 H Urine Nitrite Negative Urine Bilirubin Negative Urine Urobilinogen Normal Ur Leukocyte Esterase Negative Urine RBC 0-5 SEEN Urine WBC 0 SEEN Ur Squamous Epith Cells 5-10 SEEN Amorphous Sediment 1+ URATE Urine Bacteria RARE Urine Mucus 0 SEEN Urine Opiates Screen NEGATIVE Urine Methadone Screen NEGATIVE Ur Barbiturates Screen NEGATIVE Ur Phencyclidine Scrn NEGATIVE Ur Amphetamines Screen POSITIVE H U Methamphetamin-MDMA POSITIVE H U Benzodiazepines Scrn NEGATIVE Urine Cocaine Screen NEGATIVE U Cannabinoids Screen NEGATIVE Ur Drug Screen Comment Ethyl Alcohol Radiography Diagnostic Testing: Clinical Impression(s) from Imaging Studies Chest X-Ray 05/25/21 14:43 IMPRESSION: Normal x-ray examination of the chest. Electronically Signed: Irvin Swartz MD at 15:16 EST , Service support , Discharge Plan Triage Chief Complaint: Substance Abuse ED Provider: Norman Chester Dx/Rx/DC Orders Instructions: ED Drug Abuse Prescriptions: New dicyclomine 10 mg capsule 10 mg PO TID Qty: 20 RF: 0 ondansetron 4 mg tablet,disintegrating 4 mg PO Q8H PRN PRN (Reason: Nausea) Qty: 20 RF: 0 Primary Care Provider: Vinny Duggan Referrals: Vinny Duggan MD [Primary Care Provider] - Disposition Disposition: Home, Self Care Discharge Date/Time: 05/25/21 17:35
[2021-05-25 16:24] VITALS: BP 115/73; PULSE 105; RESP 22; O2SAT 100
--- NOTE | 2021-05-25 18:09 | CM.ED ---
DAMIEN Note Referral Source: Case Find Referral Reason: [facility] admission SW met with patient in her room. SW asked patient to put her phone down and she complied. Patient said that she quit heroin 3 days ago. Patient said that she was using 1 gram a day. Patient said that she wants detox. Sw explained the [facility] program and no phones, visitors and personal items locked up. SW explained that addiction therapist would see patient tomorrow. Patient said I changed my mind. MD indicated that there possible history of psych so SW went and met with patient again. Patient reports she had the Invega Sustena shot 3 days ago. [facility] and sees Gui Arias. Patient said that she just sees Gui at the counseling center. Patient denied any VH/AH, psych hospitalizations or SI/HI. DAMIEN updated MD. DAMIEN was advised that patient discharged home. She declined [facility] admission. Plan: Home with information on [facility] program, provided by this technical document writer Ria RENTERIA
== END 2021-05-25 17:35 | disposition home or self-care (01) ==
PROVIDERS: Emergency Provider Student in an Organized Health Care Education/Training Program; PCP Internal Medicine; Visit Provider Student in an Organized Health Care Education/Training Program
DX: F15.10 Other stimulant abuse, uncomplicated (principal); F11.13 Opioid abuse with withdrawal; F17.200 Nicotine dependence, unspecified, uncomplicated
CPT/HCPCS: 71045; 80053; 80307; 81001; 82077; 84703; 85025; 93005; 96360; 99285; J7030; A4216

== ENCOUNTER 2022-07-02 05:34 | Emergency (ER) | payer MEDICAID, SELFPAY ==
[2022-07-02 05:34] VITALS: BP 144/102; PULSE 94; RESP 18; TEMP 36.1; O2SAT 100
--- NOTE | 2022-07-02 05:44 | EDS_ITS ---
HPI History of Present Illness Chief Complaint: Upper Extremity Injury Informant: patient Narrative Narrative: Patient has pain in her right hand. This started after she punched a wall when she was angry. She punched this either Saturday or Saturday. No pain in any other area. It sore if she uses the hand or presses on the area. It is better if she rests it. Denies any other injury. [facility] Medical History Anxiety and depression Asthma Depression with anxiety Drug abuse Gallstones History of drug dependence/abuse Inappropriate sinus tachycardia IV drug abuse IV heroin use Nicotine dependence Schizophrenia Swelling of lower extremity Tachycardia Home Medications naproxen 500 mg tablet 500 mg PO BID #20 tabs 07/02/22 [Rx Last Taken Unknown] Allergy/AdvReac Type Severity Reaction Status Date / Time brompheniramine maleate Allergy Hives Verified 07/02/22 05:38 [From Dimetapp (brompheniramine-PPA)] mupirocin Allergy Swelling Verified 07/02/22 05:38 phenylpropanolamine HCl Allergy Hives Verified 07/02/22 05:38 [From Dimetapp (brompheniramine-PPA)] Family History Father Depression Anxiety Grandmother Heart disease Depression Hypertension Grandmother Breast cancer Surgical History History of placement of ear tubes History of tonsillectomy and adenoidectomy Social History Smoking Status: Current every day smoker tobacco type: cigarettes alcohol intake: never substance use type: former substance user what type of physical activity do you participate in: none ROS ROS ED Constitutional Constitutional ED: Denies chills or fever(s) Cardiovascular Cardiovascular: Denies chest pain Respiratory/Chest Respiratory/Chest: Denies cough or dyspnea Gastrointestinal Gastrointestinal: Denies nausea or vomiting Musculoskeletal Musculoskeletal: Reports other Details: See history of present illness peer Integumentary Denies abscess or rash Neurologic Neurologic: Denies paresthesias or weakness Psychiatric Psychiatric: Reports anxiety Hematologic/Lymphatic Hematologic/Lymphatic: Denies easy bleeding or easy bruising Allergic/Immunologic Allergic/Immunologic ED: Denies urticaria EXAM Physical Exam Narrative Exam Narrative: Patient is awake and alert. No acute distress. HEENT shows moist mucous membranes Lungs are clear bilaterally. Saturations are normal 100% on room air showing no hypoxia. Heart is regular with a rate about 90. Extremities show some very mild swelling over near the area of the fourth and fifth metacarpal on the right. I do not see any clinical deformity either angular or rotational with range of motion. Her range of motion is actually well-preserved. I do not see any sign of a break in the skin consistent with fight bite and she denies hitting a person. No sign of abscess or infections in this area Skin: She does have multiple areas of excoriations. She does have a history of methamphetamine use and may be picking at her skin. But I am not seeing signs of infection. These are not in the area of her pain at her right hand. Neurologically the patient is awake and alert. No flight of ideas. Const Vital Signs: 07/02/22 05:34 Temperature 96.9 F L Temperature Source Temporal Pulse Rate 94 Respiratory Rate 18 Blood Pressure 144/102 H Blood Pressure Mean 116 Pulse Ox 100 Oxygen Delivery Method Room Air MDM MDM MDM Narrative Medical decision making narrative: My independent interpretation of the patient's three-view x-ray of the right hand does not show any sign of acute fracture dislocation or foreign body. Final and by radiology shows no acute osseous abnormality. I do not think splinting will benefit this patient and will more likely provide stiffness. We will treat this with nonsteroidals rest and ice. Discharge Plan Triage Chief Complaint: Upper Extremity Injury ED Provider: Darin Scott Dx/Rx/DC Orders Clinical Impression: Contusion of hand, right Instructions: ED Hand Contusion Prescriptions: New naproxen 500 mg tablet 500 mg PO BID Qty: 20 0RF Primary Care Provider: Vinny Duggan Referrals: Vinny Duggan MD [Primary Care Provider] - Disposition Disposition: Home, Self Care
--- NOTE | 2022-07-02 06:08 | RAD_ITS ---
INDICATION: trauma EXAMINATION/TECHNIQUE: X-RAY - RIGHT XR Hand Min 3 Views 3 VIEWS COMPARISON: None. FINDINGS: SOFT TISSUES: No soft tissue swelling or gas. No radiopaque foreign body. BONES/JOINTS: No acute fracture or subluxation.. Normal alignment. Preservation of the joint space.. No sclerotic or destructive changes observed. RAD/Hand Min 3 Views IMPRESSION: No acute osseous finding.. Electronically Signed: Mynor Yeager MD at 6:18 EST ,
[2022-07-02 06:27] VITALS: BMI 23.1
== END 2022-07-02 06:30 | disposition home or self-care (01) ==
LOC: ED 05:56
PROVIDERS: Emergency Provider Emergency Medicine; PCP Internal Medicine; Visit Provider Emergency Medicine
DX: S60.221A Contusion of right hand, initial encounter (principal); F17.210 Nicotine dependence, cigarettes, uncomplicated; J45.909 Unspecified asthma, uncomplicated; W22.09XA Striking against other stationary object, initial encounter
CPT/HCPCS: 73130; 99282

== ENCOUNTER 2022-08-17 02:14 | Emergency (ER) | payer MEDICAID, SELFPAY ==
[2022-08-17 02:15] VITALS: BP 143/98; PULSE 105; RESP 16; TEMP 36.3; O2SAT 100; BMI 23.6
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
[2022-08-17 02:46] VITALS: BP 140/76; PULSE 98; RESP 18
== END 2022-08-17 02:47 | disposition home or self-care (01) ==
PROVIDERS: Emergency Provider Emergency Medicine; PCP Internal Medicine; Visit Provider Emergency Medicine
DX: T24.232A Burn of second degree of left lower leg, initial encounter (principal); F41.9 Anxiety disorder, unspecified; F17.200 Nicotine dependence, unspecified, uncomplicated; F32.A Depression, unspecified; F17.210 Nicotine dependence, cigarettes, uncomplicated; T31.0 Burns involving less than 10% of body surface; X19.XXXA Contact with other heat and hot substances, initial encounter
CPT/HCPCS: 99282

== ENCOUNTER 2022-08-23 22:58 | Emergency (ER) | payer MEDICAID, SELFPAY ==
[2022-08-23 22:58] VITALS: BP 107/86; PULSE 110; RESP 18; TEMP 36.8; O2SAT 98; BMI 22.0
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
[2022-08-23] MEDS: Smz/Tmp Ds Tablet 1 TABLET PO (23:24)
== END 2022-08-23 23:28 | disposition home or self-care (01) ==
LOC: ED 23:22
PROVIDERS: Emergency Provider Emergency Medicine; PCP Internal Medicine; Visit Provider Emergency Medicine
DX: T24.202A Burn of second degree of unspecified site of left lower limb, except ankle and foot, initial encounter (principal); L03.116 Cellulitis of left lower limb; F17.210 Nicotine dependence, cigarettes, uncomplicated
CPT/HCPCS: 99282

== ENCOUNTER 2022-09-21 19:33 | Emergency (ER) | payer MEDICAID, SELFPAY ==
[2022-09-21 19:34] VITALS: BP 138/94; PULSE 95; RESP 18; TEMP 36.5; O2SAT 100; BMI 22.6
[2022-09-21 19:55] VITALS: BP 138/94; PULSE 85; RESP 16; TEMP 36.5; O2SAT 100
[2022-09-21 20:16] LABS: Mucous, Urine 0 SEEN /hpf (<or=2+); Red Blood Cells-Urine 0 SEEN /hpf (0-5); White Blood Cells 0 SEEN /hpf (0-5)
[2022-09-21 20:26] LABS: Color, Urine Yellow (Yellow); Glucose, Dipstick Normal (Normal); Ketone-Dipstick Negative (Negative); Leukocyte Esterase-Dipstick Negative /ul (Negative); Nitrite-Dipstick Positive (Negative); Occult Blood-Urine Negative /ul (Negative); Protein-Dipstick Negative (Negative); Specific Gravity, Urine 1.015 (1.002-1.030); Urine Bilirubin Dipstick Negative (Negative); Urine Clarity Clear (Clear); Urine Urobilinogen Normal (Normal)
[2022-09-21 20:41] LABS: Amorphous Sediment 1+; Bacteria 1+ /hpf (None Seen); Internal QC Validated? YES +Cl - CLEAR BKGD; Pregnancy, Urine Negative Negative; Squamous Epithelial Cells - UA 0-5 SEEN /hpf (5-10)
--- NOTE | 2022-09-21 21:00 | ED.VIS.FEGU ---
HPI <NANCY Levine - Last Filed: 09/21/22 21:28> HPI - Female History of Present Illness Chief Complaint: Complaint Narrative Narrative: Today due to dark, cloudy, and foul-smelling urine that she has had since yesterday. She is also had dysuria and increased urinary frequency. She reports that over the past few months she has had pain with sexual intercourse as well as intermittent pelvic pain. She has noticed white discharge at times. She thinks that her boyfriend may have cheated on her but is not sure. He is not exhibiting any signs of STDs that she is aware of. She denies any fever, chills, abdominal pain, nausea, and vomiting. She denies any foul-smelling vaginal discharge. PFSH <NANCY Levine - Last Filed: 09/21/22 21:28> [facility] Medical History Anxiety and depression Asthma Depression with anxiety Drug abuse Gallstones History of drug dependence/abuse Inappropriate sinus tachycardia IV drug abuse IV heroin use Nicotine dependence Schizophrenia Swelling of lower extremity Tachycardia Home Medications silver sulfadiazine 1 % topical cream (Silvadene) 1 applic topical BID 10 days #50 grams 08/17/22 [Rx Last Taken Unknown] sulfamethoxazole 800 mg-trimethoprim 160 mg tablet 1 tab PO BID #6 TABLETS 09/23/22 [Rx Last Taken Unknown] Allergy/AdvReac Type Severity Reaction Status Date / Time brompheniramine maleate Allergy Hives Verified 09/21/22 19:34 [From Dimetapp (brompheniramine-PPA)] mupirocin Allergy Swelling Verified 09/21/22 19:34 phenylpropanolamine HCl Allergy Hives Verified 09/21/22 19:34 [From Dimetapp (brompheniramine-PPA)] Family History Father Depression Anxiety Grandmother Heart disease Depression Hypertension Grandmother Breast cancer Surgical History History of placement of ear tubes History of tonsillectomy and adenoidectomy Social History Smoking Status: Current every day smoker tobacco type: cigarettes alcohol intake: never substance use type: former substance user what type of physical activity do you participate in: none ROS <NANCY Levine - Last Filed: 09/21/22 21:28> ROS ED Constitutional Constitutional ED: Denies chills, fever(s) or sweats Cardiovascular Cardiovascular: Denies chest pain Respiratory/Chest Respiratory/Chest: Denies cough or dyspnea Gastrointestinal Gastrointestinal: Denies abdominal pain, nausea or vomiting Genitourinary Genitourinary ED: Reports dysuria and urinary frequency; Denies hematuria Musculoskeletal Musculoskeletal: Denies arthralgias or myalgias Integumentary Denies rash Neurologic Neurologic: Denies weakness EXAM <NANCY Levine - Last Filed: 09/21/22 21:28> Physical Exam Const Vital Signs: 09/21/22 19:34 09/21/22 19:55 Temperature 97.7 F L 97.7 F L Temperature Source Temporal Oral Pulse Rate 95 85 Respiratory Rate 18 16 Blood Pressure 138/94 H 138/94 H Blood Pressure Mean 108 108 Pulse Ox 100 100 Oxygen Delivery Method Room Air Room Air Positive well nourished, well developed and no apparent distress General Appearance ED: well developed HEENT Reports normocephalic and head/scalp atraumatic Mouth ED: Yes moist mucous membranes normal Eyes PERRL and EOMs intact bilaterally Neck full ROM and supple Chest Wall inspection of chest normal Resp normal respiratory effort and clear to auscultation bilaterally Cardio regular rate and regular rhythm GI soft to palpation, non-tender, non-distended and no masses Narrative: Speculum examination performed, patient does have a milky white vaginal discharge that is nonodorous. Back/Spine normal ROM and normal to inspection Extremity normal to inspection and full ROM Neuro oriented x3, CN's II-XII intact bilaterally, moves all extremities, no focal motor deficits and no sensory deficits noted Sensorium / Orientation: awake and alert Psych mental status grossly normal and thought process normal Skin no rashes or lesions noted and no wounds <Dr. Riki Lujan MD - Last Filed: 09/23/22 07:41> Physical Exam Const Vital Signs: 09/21/22 19:34 09/21/22 19:55 Temperature 97.7 F L 97.7 F L Temperature Source Temporal Oral Pulse Rate 95 85 Respiratory Rate 18 16 Blood Pressure 138/94 H 138/94 H Blood Pressure Mean 108 108 Pulse Ox 100 100 Oxygen Delivery Method Room Air Room Air <Dr. Joan Bro DO - Last Filed: 09/25/22 13:41> Physical Exam Const Vital Signs: 09/21/22 19:34 09/21/22 19:55 Temperature 97.7 F L 97.7 F L Temperature Source Temporal Oral Pulse Rate 95 85 Respiratory Rate 18 16 Blood Pressure 138/94 H 138/94 H Blood Pressure Mean 108 108 Pulse Ox 100 100 Oxygen Delivery Method Room Air Room Air MDM <NANCY Levine - Last Filed: 09/21/22 21:28> [facility] Narrative Medical decision making narrative: Patient presenting today due to concerns that she could have a UTI or an STD. The urinary symptoms began yesterday and the pain with sexual intercourse, intermittent pelvic pain, and intermittent white vaginal discharge has been going on for the past few months. She reports she does not have a PCP or marine engine mechanic that she sees regularly. I will give her a referral for both of these. Swabs and urine to be obtained to rule out gonorrhea, chlamydia, and trichomonas and UTI. Patient does have a UTI. She will be started on Keflex with first dose here. Be discharged home in stable condition and is comfortable with plan. Lab Data Attestation: I reviewed the patient's lab results. Labs: Laboratory Results - last 24 hr 09/21/22 20:00 Urine Color Yellow Urine Clarity Clear Urine pH 7.0 Ur Specific [place] 1.015 Urine Protein Negative Urine Glucose (UA) Normal Urine Ketones Negative Urine Occult Blood Negative Urine Nitrite Positive H Urine Bilirubin Negative Urine Urobilinogen Normal Ur Leukocyte Esterase Negative Urine RBC 0 SEEN Urine WBC 0 SEEN Ur Squamous Epith Cells 0-5 SEEN Amorphous Sediment 1+ Urine Bacteria 1+ Urine Mucus 0 SEEN Urine Test Negative <Dr. Riki Lujan MD - Last Filed: 09/23/22 07:41> [facility] Lab Data Labs: Laboratory Results - last 24 hr 09/21/22 20:00 Urine Color Yellow Urine Clarity Clear Urine pH 7.0 Ur Specific [place] 1.015 Urine Protein Negative Urine Glucose (UA) Normal Urine Ketones Negative Urine Occult Blood Negative Urine Nitrite Positive H Urine Bilirubin Negative Urine Urobilinogen Normal Ur Leukocyte Esterase Negative Urine RBC 0 SEEN Urine WBC 0 SEEN Ur Squamous Epith Cells 0-5 SEEN Amorphous Sediment 1+ Urine Bacteria 1+ Urine Mucus 0 SEEN Urine Test Negative Treatment and Re-Evaluation Narrative: I did not see this patient, but was given culture results on 09/23/2022, showing greater than 100,000 colony-forming units per mL of E. coli, and first generation cephalosporins are listed as intermediate on the sensitivities. She has been on Bactrim before and it is sensitive to that, so I am changing her prescription and staff will call to alert her. <Dr. Joan Bro, DO - Last Filed: 09/25/22 13:41> MDM MDM Narrative Medical decision making narrative: Patient presenting today due to concerns that she could have a UTI or an STD. The urinary symptoms began yesterday and the pain with sexual intercourse, intermittent pelvic pain, and intermittent white vaginal discharge has been going on for the past few months. She reports she does not have a PCP or marine engine mechanic that she sees regularly. I will give her a referral for both of these. Swabs and urine to be obtained to rule out gonorrhea, chlamydia, and trichomonas and UTI. Patient does have a UTI. She will be started on Keflex with first dose here. Be discharged home in stable condition and is comfortable with plan. I have personally performed a face to face assessment of the patient and have reviewed the BÁRBARA Note. I performed a substantive portion of the visit including all aspects of the following. My martin findings include: Patient is a 27-year-old female presenting for dark, cloudy and foul-smelling urine since yesterday. She has had painful sexual intercourse for the past few months and intermittent pelvic pain. Also having some white discharge. She is concern for infidelity with her significant other but is not aware of any STD symptoms/infection. Patient's vital signs are normal in the emergency room. She is afebrile. Abdomen soft and nontender. Pelvic exam performed by Val CRUZ. Urinalysis is contaminated but does show positive nitrites with 1+ bacteria. Patient is started on Keflex for likely UTI given her symptoms and positive nitrites. Will defer STD testing until results come back as her symptoms are more consistent with UTI. Patient agreeable with plan of care. Patient overall well-appearing I do not think blood work indicated at this time. Do not think she has pyelonephritis or pelvic inflammatory disease. Pelvic exam was benign per NANCY. Other additions or changes: [None] Lab Data Labs: Laboratory Results - last 24 hr 09/21/22 20:00 Urine Color Yellow Urine Clarity Clear Urine pH 7.0 Ur Specific [place] 1.015 Urine Protein Negative Urine Glucose (UA) Normal Urine Ketones Negative Urine Occult Blood Negative Urine Nitrite Positive H Urine Bilirubin Negative Urine Urobilinogen Normal Ur Leukocyte Esterase Negative Urine RBC 0 SEEN Urine WBC 0 SEEN Ur Squamous Epith Cells 0-5 SEEN Amorphous Sediment 1+ Urine Bacteria 1+ Urine Mucus 0 SEEN Urine Test Negative Discharge Plan Triage Chief Complaint: Complaint Other Complaint: Burn ED Midlevel Provider: Val Stanley ED Provider: Joan Bro Dx/Rx/DC Orders Clinical Impression: UTI (urinary tract infection), Encounter for assessment of STD exposure Instructions: ED Cystitis Female Adult Prescriptions: New sulfamethoxazole-trimethoprim [sulfamethoxazole-trimethoprim] 800-160 mg tablet 1 tab PO BID Qty: 6 0RF Discontinued cephalexin 500 mg capsule 500 mg PO TID 7 Days Qty: 21 0RF sulfamethoxazole-trimethoprim [Bactrim DS] 800-160 mg tablet 1 tab PO BID Qty: 10 0RF No Action silver sulfadiazine [Silvadene] 1 % cream 1 applic topical BID 10 Days Qty: 50 0RF Rx Instructions: apply a 1.5 mm thickness Primary Care Provider: Vinny Duggan Referrals: Vinny Duggan MD [Primary Care Provider] - Shanice Mercado MD [Med Staff - Active Staff] - 1 Week Activity Restrictions/Additional Instructions: Please follow-up with the FURNITURE MOVER HELPER that I have referred you to and return for any worsening of symptoms. You will be contacted if your STD testing is positive. Please take antibiotics for your UTI as prescribed. Disposition Disposition: Home, Self Care
[2022-09-21] MEDS: Cephalexin 250 MG Capsule 500 MG PO (21:27)
[2022-09-21 22:15] LABS: Chlamydia Trachomatis by PCR Negative (Negative); Neisserai gonorrhoeae by PCR Negative (Negative); Probe Check PASS; Sample Adequacy Control PASS; Specimen Processing Control PASS
== END 2022-09-21 21:29 | disposition home or self-care (01) ==
PROVIDERS: Physician Assistant; Emergency Provider Emergency Medicine; PCP Internal Medicine; Visit Provider Emergency Medicine
DX: N39.0 Urinary tract infection, site not specified (principal); F11.21 Opioid dependence, in remission; N89.8 Other specified noninflammatory disorders of vagina; F41.9 Anxiety disorder, unspecified; F32.9 Major depressive disorder, single episode, unspecified; J45.909 Unspecified asthma, uncomplicated; Z79.899 Other long term (current) drug therapy; F17.210 Nicotine dependence, cigarettes, uncomplicated; Z11.3 Encounter for screening for infections with a predominantly sexual mode of transmission
CPT/HCPCS: 81001; 81025; 87077; 87086; 87088; 87186; 87210; 87491; 87591; 99283

== ENCOUNTER 2022-11-20 00:15 | Emergency (ER) | payer MEDICAID, SELFPAY ==
[2022-11-20 00:18] VITALS: BP 144/86; PULSE 116; RESP 18; TEMP 36.8; O2SAT 100; BMI 22.6
--- NOTE | 2022-11-20 00:39 | EX.ED.UPPERE ---
HPI History of Present Illness Chief Complaint: Upper Extremity Injury Informant: patient Narrative Narrative: 27-year-old female presents with a wrist drop on the left. She is right-hand dominant. She states she woke up with this morning before last, and it has not gone away. She states felt like she slept on it funny, it was fine when she went to bed. She has numbness in all of the fingers, as well as some uncomfortable pins and needle sensation in the thumb. The numbness is basically from the wrist down into the hand and fingers. She denies any neck, axilla, upper arm pain, and no major injury. [facility] Medical History Anxiety and depression Asthma Depression with anxiety Drug abuse Gallstones History of drug dependence/abuse Inappropriate sinus tachycardia IV drug abuse IV heroin use Nicotine dependence Schizophrenia Swelling of lower extremity Tachycardia Allergy/AdvReac Type Severity Reaction Status Date / Time brompheniramine maleate Allergy Hives Verified 11/20/22 00:18 [From Dimetapp (brompheniramine-PPA)] mupirocin Allergy Swelling Verified 11/20/22 00:18 phenylpropanolamine HCl Allergy Hives Verified 11/20/22 00:18 [From Dimetapp (brompheniramine-PPA)] Family History Father Depression Anxiety Grandmother Heart disease Depression Hypertension Grandmother Breast cancer Surgical History History of placement of ear tubes History of tonsillectomy and adenoidectomy Social History Smoking Status: Current every day smoker tobacco type: cigarettes alcohol intake: never substance use type: former substance user what type of physical activity do you participate in: none ROS ROS ED Constitutional Constitutional ED: Denies chills or fever(s) Gastrointestinal Gastrointestinal: Denies nausea or vomiting Musculoskeletal Musculoskeletal: Reports as per HPI; Denies back pain, extremity pain or neck pain Neurologic Neurologic: Reports as per HPI, paresthesias LUE (hand) and weakness; Denies headache(s) EXAM Physical Exam Const Vital Signs: 11/20/22 00:18 Temperature 98.3 F Temperature Source Oral Pulse Rate 116 H Respiratory Rate 18 Blood Pressure 144/86 H Blood Pressure Mean 105 Pulse Ox 100 Oxygen Delivery Method Room Air Positive well nourished and well developed General Appearance ED: well developed and NAD Extremity Extremity Narrative: Normal inspection except for wrist drop left hand/wrist. She is unable to extend. No bony tenderness no swelling no erythema no signs of an abscess or infection no epitrochlear lymphadenopathy. Full passive range of motion of all joints without difficulty or pain. Neuro oriented x3 and CN's II-XII intact bilaterally Neuro Narrative: Left wrist drop, and decreased sensation especially to the dorsum of the left hand all fingers. Intact 2+/4 radial pulse. Able to make a fist without difficulty and flex all left fingers without difficulty, and flex the left wrist without difficulty. Psych mental status grossly normal Skin Skin Narrative: Normal on inspection no rash, lesions, petechiae, abscess. MDM MDM MDM Narrative Medical decision making narrative: This is consistent with a radial nerve palsy. Differential includes neuropraxia, in which case he will self-resolve. In the meantime she is given a wrist splint prefabricated Velcro so that she can take it on and off easily, and advised to follow-up with neurology if this persists she may need nerve conduction studies to see where the neuropathy is occurring at for further exploration. If it is difficult to get into neurology she is given her PCP to follow-up with as well for further evaluation and possible referrals. Discharge Plan Triage Chief Complaint: Upper Extremity Injury ED Provider: Riki Lujan Dx/Rx/DC Orders Clinical Impression: Acute radial nerve palsy of left upper extremity Instructions: ED Radial Nerve Palsy Primary Care Provider: Vinny Duggan Referrals: Vinny Duggan MD [Primary Care Provider] - As soon as possible (and/or Neurology) Dago Restrepo MD [Non-Staff -Ordering Privileges] - 3-5 Days if not improving Disposition Disposition: Home, Self Care
== END 2022-11-20 01:09 | disposition home or self-care (01) ==
LOC: ED 00:54
PROVIDERS: Emergency Provider Emergency Medicine; PCP Internal Medicine; Visit Provider Emergency Medicine
DX: G56.32 Lesion of radial nerve, left upper limb (principal); F17.210 Nicotine dependence, cigarettes, uncomplicated
CPT/HCPCS: 99283

== ENCOUNTER 2023-03-07 11:43 | Emergency (ER) | payer MEDICAID, SELFPAY ==
[2023-03-07 11:45] VITALS: BP 144/86; PULSE 115; RESP 16; TEMP 36.1; O2SAT 100; BMI 23.1
--- NOTE | 2023-03-07 12:04 | EDS_ITS ---
HPI History of Present Illness Chief Complaint: General Illness Informant: patient and spouse/S.O. Narrative Narrative: Patient presents with a complaint of just not feeling quite right. It sounds like she has more tiredness. She denies coughing or dyspnea to me. She denies ever having a fever. She denies nausea vomiting. No abdominal or pelvic pain. No pelvic discharge or bleeding. No urinary symptoms. This patient does use methamphetamine and fentanyl. She has been smoking it recently. The last time she injected was weeks ago. Last time she used was about 2 days ago. She states she does feel little bit of withdrawal and shakiness. On review of systems I also find out that her menstrual cycle is late. Her last menstrual cycle was about 2 months ago in the beginning of January. But she states even that 1 was only 3 days and shorter than normal. Then, only after specifically asking if she has done a test I find out that she is done a test on March 03 and . All 3 of these were positive. I then asked if she is interested in detox. She states she is but she knows we do not do detox of women here. I explained that I am happy to call up at [facility] that does do this. But she states she would rather drive up there and does not want me to call. I stated if she wants we can do blood work and full evaluation and contact them but she does not want this at this time. I explained that I will get her an official test. But I do not think there is any other testing that is needed right now based on her symptoms and exam. [facility] Medical History Anxiety and depression Asthma Depression with anxiety Drug abuse Gallstones History of drug dependence/abuse Inappropriate sinus tachycardia IV drug abuse IV heroin use Nicotine dependence Schizophrenia Swelling of lower extremity Tachycardia Allergy/AdvReac Type Severity Reaction Status Date / Time brompheniramine maleate Allergy Hives Verified 03/07/23 11:45 [From Dimetapp (brompheniramine-PPA)] mupirocin Allergy Swelling Verified 03/07/23 11:45 phenylpropanolamine HCl Allergy Hives Verified 03/07/23 11:45 [From Dimetapp (brompheniramine-PPA)] Family History Father Depression Anxiety Grandmother Heart disease Depression Hypertension Grandmother Breast cancer Surgical History History of placement of ear tubes History of tonsillectomy and adenoidectomy Social History Smoking Status: Current every day smoker tobacco type: cigarettes alcohol intake: never substance use type: former substance user what type of physical activity do you participate in: none ROS ROS ED Constitutional Constitutional ED: Denies chills, fever(s), subjective or sweats Eyes Eyes: Denies change in vision ENT ENT ED: Denies rhinorrhea or sore throat Cardiovascular Cardiovascular: Denies chest pain or palpitations Respiratory/Chest Respiratory/Chest: Denies cough or dyspnea Gastrointestinal Gastrointestinal: Reports other; Denies abdominal pain, diarrhea, nausea or vomiting Genitourinary Genitourinary ED: Reports other Details: See history of present illness regarding last menstrual cycle and positive test. ; Denies hematuria Musculoskeletal Musculoskeletal: Denies back pain Integumentary Reports other Details: She has not acted for weeks. She denies any skin changes from injection. ; Denies abscess or rash Neurologic Neurologic: Denies headache(s), paresthesias or weakness Endocrine Endocrinology: Denies polydipsia or polyuria Hematologic/Lymphatic Hematologic/Lymphatic: Denies easy bleeding, easy bruising or lymphadenopathy Allergic/Immunologic Allergic/Immunologic ED: Denies urticaria EXAM Physical Exam Narrative Exam Narrative: General: Patient is awake alert. No acute distress. Not diaphoretic or pale. HEENT: Oropharynx is moist. No lesions noted. Eyes: No icterus or inflammation Neck is supple without meningismus. No JVD. Lungs are clear. Saturations are normal at 100% on room air showing no hypoxia. Heart is regular. She does have a rate about 100-105. But I hear no murmur. She has peripheral pulses are intact. Abdomen is soft completely nontender in all areas including no lower or pelvic tenderness. No CVA tenderness. Extremities show no rashes. No splinter hemorrhages Janeway lesions or Osler nodes. Neurologically she is awake alert appropriate. Not sleepy or lethargic. Const Vital Signs: 03/07/23 11:45 03/07/23 12:01 Temperature 96.9 F L Temperature Source Temporal Pulse Rate 115 H Respiratory Rate 16 Respiratory Pattern Normal Blood Pressure 144/86 H Blood Pressure Mean 105 Pulse Ox 100 Oxygen Delivery Method Room Air MDM MDM MDM Narrative Medical decision making narrative: Patient's urine is positive here. This makes 4 out of 4 test positive. I do not think she needs blood work as she is not having bleeding fevers or any other issues. I do not think ultrasound the pelvis is needed as she has no bleeding discharge or pain. I talked with the patient again. She was relaxed and comfortable. She does not want us to contact [facility] about detox. She states she plans to go up there tomorrow when she has a ride. I will refer her to a OB physician locally. Lab Data Attestation: I reviewed the patient's lab results. Labs: Laboratory Results - last 24 hr 03/07/23 12:08 Urine Test Positive H Discharge Plan Triage Chief Complaint: General Illness ED Provider: Darin Scott Dx/Rx/DC Orders Clinical Impression: Opiate abuse, continuous, Methamphetamine abuse, Positive test Instructions: Addiction: Your Treatment Options, ED , New Dx Primary Care Provider: Vinny Duggan Referrals: Vinny Duggan MD [Primary Care Provider] - Hilton Peña MD [Med Staff - Active Staff] - As soon as possible (Call for an appointment for follow-up. Let them know you have a positive test here also.) Disposition Disposition: Home, Self Care
[2023-03-07 12:40] LABS: Internal QC Validated? YES +Cl - CLEAR BKGD
[2023-03-07 12:41] LABS: Pregnancy, Urine Positive Negative; Record Kit Lot#,Urine Preg HCG0000667200
[2023-03-07 14:01] VITALS: RESP 14
== END 2023-03-07 14:04 | disposition home or self-care (01) ==
PROVIDERS: Emergency Provider Emergency Medicine; PCP Internal Medicine; Visit Provider Emergency Medicine
DX: Z32.01 Encounter for pregnancy test, result positive (principal); F15.10 Other stimulant abuse, uncomplicated; F11.10 Opioid abuse, uncomplicated; F17.210 Nicotine dependence, cigarettes, uncomplicated
CPT/HCPCS: 81025; 99282

== ENCOUNTER 2023-03-27 08:07 | Emergency (ER) | payer MEDICAID, SELFPAY ==
[2023-03-27 08:08] VITALS: BP 134/89; PULSE 112; RESP 14; TEMP 36.2; O2SAT 100; BMI 24.7
--- NOTE | 2023-03-27 08:37 | ED.VIS.DENTA ---
HPI History of Present Illness Chief Complaint: Dental Informant: patient and spouse/S.O. Narrative Narrative: Worsening right lower dental pain for the past couple days. Hot and cold sensitivities. States has had cavities, has not had issues until now. 11 weeks by dates. G2, P0. She is established with OB up at [facility]. Reports previously opiate dependence with fentanyl, had stopped. She states her OB is aware. Denies any history of kidney injury. Denies gastric ulcer history. Does not take any medicines for pain. She does take prenatals. Denies vomiting diarrhea denies any urinary symptoms. Prior similar symptoms: No PFSH PFSH Medical History Anxiety and depression Asthma Depression with anxiety Drug abuse Gallstones History of drug dependence/abuse Inappropriate sinus tachycardia IV drug abuse IV heroin use Nicotine dependence Schizophrenia Swelling of lower extremity Tachycardia Home Medications penicillin V potassium 500 mg tablet 500 mg PO 4X/DAY #40 tabs 03/27/23 [Rx Last Taken Unknown] Allergy/AdvReac Type Severity Reaction Status Date / Time brompheniramine maleate Allergy Hives Verified 03/27/23 08:09 [From Dimetapp (brompheniramine-PPA)] mupirocin Allergy Swelling Verified 03/27/23 08:09 phenylpropanolamine HCl Allergy Hives Verified 03/27/23 08:09 [From Dimetapp (brompheniramine-PPA)] Family History Father Depression Anxiety Grandmother Heart disease Depression Hypertension Grandmother Breast cancer Surgical History History of placement of ear tubes History of tonsillectomy and adenoidectomy Social History Smoking Status: Current every day smoker tobacco type: cigarettes alcohol intake: never substance use type: former substance user what type of physical activity do you participate in: none ROS ROS ED Constitutional Constitutional ED: Denies chills, fever(s) or sweats Eyes Eyes: Denies change in vision ENT ENT ED: Reports other Details: Dental pain ; Denies dysphagia or sore throat Cardiovascular Cardiovascular: Denies chest pain, leg edema, palpitations or racing heartbeat Respiratory/Chest Respiratory/Chest: Denies cough, dyspnea or dyspnea on exertion Gastrointestinal Gastrointestinal: Denies abdominal pain, diarrhea, nausea or vomiting Genitourinary Genitourinary ED: Denies dysuria, hematuria or urinary frequency Musculoskeletal Musculoskeletal: Denies back pain, extremity pain or neck pain Integumentary Denies rash or wounds Neurologic Neurologic: Denies headache(s), paresthesias or weakness EXAM Physical Exam Const Vital Signs: 03/27/23 08:08 Temperature 97.1 F L Temperature Source Temporal Pulse Rate 112 H Respiratory Rate 14 Blood Pressure 134/89 H Blood Pressure Mean 104 Pulse Ox 100 Oxygen Delivery Method Room Air Positive well nourished and well developed General Appearance ED: well developed and NAD HEENT Reports moist mucous membranes HEENT Narrative: There is dental decay of tooth #29, there is a dental filling on tooth 30. There is no tenderness to percussion. No focal fluctuance of the gumline no sublingual edema. There is dental decay on the left upper left lower, also nontender. Airway patent. No trismus. normocephalic and atraumatic Eyes PERRL, EOMs intact bilaterally and conjunctivae normal General Eye ED: Yes normal appearance of both eyes Neck no lymphadenopathy and supple General: Negative for tenderness Chest Wall Chest: Negative for tenderness Resp normal respiratory effort and normal air movement Effort and Inspection: symmetric chest movement; Negative for respiratory distress Cardio regular rate, regular rhythm and no murmurs Peripheral Pulses: pulses 2+ throughout GI normal to inspection, nondistended, normoactive bowel sounds and non-tender Palpation: Negative for guarding or rebound tenderness present Back/Spine no CVA tenderness and no thoracic nor lumbar tenderness Extremity normal to inspection General Extremety ED: Negative for edema or tenderness General Extremity: Negative for edema Neuro oriented x3 and no sensory deficits noted Sensorium / Orientation: awake and alert Skin no rashes or lesions noted and no wounds MDM MDM MDM Narrative Medical decision making narrative: Interventions / MDM: Differential diagnosis: Dental caries, dentalgia, first trimester Diagnosis considered but do not suspect: No clinical Dawood angina My EKG interpretation: N/A Imaging independently reviewed and interpreted by myself: N/A External documents reviewed: N/A Test considered but not ordered:N/A ED course: Nontoxic, presents with dental pain pain with dental caries. Start penicillin Tylenol. Discussed with her Tylenol or acetaminophen as needed. She will finish antibiotics. Dental list given for referral for definitive treatment and evaluation. All questions were answered. Re-evaluation: stable Disposition discussed with patient/family/significant other: Patient and significant other Case discussed with consulting clinician: N/A This note was generated with Brain in [employer] dictation software. It may contain incorrect words, spelling, and punctuation that were not noted in checking the note before signing. Discharge Plan Triage Chief Complaint: Dental ED Provider: Rosalio Gomez Dx/Rx/DC Orders Clinical Impression: First trimester , Dental caries, Dentalgia Instructions: ED Dental Pain, ED Dental Cavity Prescriptions: New penicillin V potassium 500 mg tablet 500 mg PO 4X/DAY Qty: 40 0RF Primary Care Provider: Vinny Duggan Referrals: Vinny Duggan MD [Primary Care Provider] - Activity Restrictions/Additional Instructions: Take antibiotic as prescribed. Follow-up with dentist for outpatient evaluation and definitive treatment. With being use Tylenol or acetaminophen every 6 hours as needed for pain. Disposition Disposition: Home, Self Care Discharge Date/Time: 03/27/23 08:49
[2023-03-27] MEDS: Acetaminophen 500 MG Tablet 1000 MG PO (08:44)
[2023-03-27] MEDS: Penicillin Vk 250 MG Tablet 500 MG PO (08:44)
== END 2023-03-27 08:49 | disposition home or self-care (01) ==
PROVIDERS: Emergency Provider Emergency Medicine; PCP Internal Medicine; Visit Provider Emergency Medicine
DX: O99.611 Diseases of the digestive system complicating pregnancy, first trimester (principal); K02.9 Dental caries, unspecified; Z3A.11 11 weeks gestation of pregnancy; O99.331 Smoking (tobacco) complicating pregnancy, first trimester; F17.210 Nicotine dependence, cigarettes, uncomplicated
CPT/HCPCS: 99283

== ENCOUNTER 2023-03-31 04:11 | Emergency (ER) | payer MEDICAID, SELFPAY ==
[2023-03-31 04:12] VITALS: BP 128/80; PULSE 113; RESP 18; TEMP 36.9; O2SAT 99; BMI 25.1
--- NOTE | 2023-03-31 04:19 | ED.RN ---
Pt slow to answer questions, unsure of how far along she is, doesn't lift her face from her phone. Two [facility] deputies arrive at bedside.
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
== END 2023-03-31 05:05 | disposition home or self-care (01) ==
LOC: ED 05:03
PROVIDERS: Emergency Provider Emergency Medicine; PCP Internal Medicine; Visit Provider Emergency Medicine
DX: O9A.211 Injury, poisoning and certain other consequences of external causes complicating pregnancy, first trimester (principal); S00.33XA Contusion of nose, initial encounter; O99.331 Smoking (tobacco) complicating pregnancy, first trimester; Y04.8XXA Assault by other bodily force, initial encounter; F17.210 Nicotine dependence, cigarettes, uncomplicated; Z3A.11 11 weeks gestation of pregnancy
CPT/HCPCS: 99284

== ENCOUNTER 2023-04-21 20:32 | Emergency (ER) | payer MEDICAID, SELFPAY ==
[2023-04-21 20:33] VITALS: BP 129/81; PULSE 137; RESP 20; TEMP 36.1; O2SAT 100; BMI 24.8
--- NOTE | 2023-04-21 22:24 | EX.ED.DYSGE1 ---
HPI History of Present Illness Chief Complaint: Cellulitis Informant: patient Narrative Narrative: Patient states she noticed painful redness on her right lower leg today. She cannot tell me exactly how long it has been there, but they have been waiting for a physician for couple hours and the family member states that it has spread a little bit since they have been waiting. She denies any systemic symptoms including fevers or chills. There is a small area that is seems to be focused around or that it might of started at, she denies knowing how this got there. She denies any suspicion of a foreign body here, she has a history of IV drug use but denies using IV drugs here. She basically says she has no idea. She has had abscesses in the past. She denies having any drainage, but then the significant other states that he put his glasses on and looked at it like a magnifying glass, and says there was a droplet of something liquid there earlier. Patient states she is 14 weeks and having no issues in her abdomen or genitalia right now. [facility] Medical History Anxiety and depression Asthma Depression with anxiety Drug abuse Gallstones History of drug dependence/abuse Inappropriate sinus tachycardia IV drug abuse IV heroin use Nicotine dependence Schizophrenia Swelling of lower extremity Tachycardia Home Medications cephalexin 500 mg capsule 500 mg PO Q6 #40 CAPSULES 04/21/23 [Rx Last Taken Unknown] vitamin with calcium no.72-iron 27 mg-folic acid 1 mg tablet ( Vitamins Plus Low Iron) 1 tab PO Q24H 04/21/23 [History Last Taken Unknown] sulfamethoxazole 800 mg-trimethoprim 160 mg tablet 1 tab PO BID #20 TABLETS 04/21/23 [Rx Last Taken Unknown] Allergy/AdvReac Type Severity Reaction Status Date / Time brompheniramine maleate Allergy Hives Verified 03/27/23 08:09 [From Dimetapp (brompheniramine-PPA)] mupirocin Allergy Swelling Verified 03/27/23 08:09 phenylpropanolamine HCl Allergy Hives Verified 03/27/23 08:09 [From Dimetapp (brompheniramine-PPA)] Family History Father Depression Anxiety Grandmother Heart disease Depression Hypertension Grandmother Breast cancer Surgical History History of placement of ear tubes History of tonsillectomy and adenoidectomy Social History Smoking Status: Current every day smoker tobacco type: cigarettes alcohol intake: never substance use type: former substance user what type of physical activity do you participate in: none ROS ROS ED Constitutional Constitutional ED: Denies chills or fever(s) Musculoskeletal Musculoskeletal: Reports extremity pain; Denies neck pain Integumentary Reports rash; Denies Abrasions or wounds Neurologic Neurologic: Denies paresthesias or weakness EXAM Physical Exam Const Vital Signs: 04/21/23 20:33 Temperature 96.9 F L Temperature Source Temporal Pulse Rate 137 H Respiratory Rate 20 H Blood Pressure 129/81 H Blood Pressure Mean 97 Pulse Ox 100 Oxygen Delivery Method Room Air Positive well nourished and well developed General Appearance ED: well developed and NAD Neck full ROM and supple Back/Spine normal ROM and normal to inspection Extremity Extremity Narrative: Tender blanching erythema right lower leg medial aspect does not progress to the knee or beyond. No palpable cords. Feathers at the edges. All the erythema is tender but it seems to be focused around a central small scabbed lesion the size of the tip of a pencil, skin is most tender here in more erythematous but there is no fluctuance or subcutaneous nodule to suggest a drainable abscess. Mild induration here but nowhere else. No lymphangitis. Full range of motion of the knee and ankle neurovascular intact distally. No subcutaneous emphysema. All compartments soft and nondistended. Neuro oriented x3, no focal motor deficits and no sensory deficits noted Sensorium / Orientation: alert Psych mental status grossly normal and thought process normal Skin Skin Narrative: Tender erythema right lower leg see above for details. No other rashes. MDM MDM MDM Narrative Medical decision making narrative: This looks more like erysipelas, however she has a history of abscesses so I am wanting to cover strep and MRSA. Will give her an injection of Ancef here as well as start her on Bactrim and prescribed cephalexin and Bactrim, we discussed reasons to return there is nothing to drain here right now but if that changes she should come back to the ER and we will drain it. Encouraged to use probiotic of some sort while on the 2 antibiotics. Discharge Plan Triage Chief Complaint: Cellulitis ED Provider: Riki Lujan Dx/Rx/DC Orders Clinical Impression: Cellulitis of right leg without foot Instructions: Cellulitis Dc Prescriptions: New sulfamethoxazole-trimethoprim [sulfamethoxazole-trimethoprim] 800-160 mg tablet 1 tab PO BID Qty: 20 0RF cephalexin [cephalexin] 500 mg capsule 500 mg PO Q6 Qty: 40 0RF No Action Vitamin Plus Low Iron 27 mg iron- 1 mg tablet 1 tab PO Q24H Patient Comments: Take 1 tablet by mouth daily. Primary Care Provider: Vinny Duggan Referrals: Vinny Duggan MD [Primary Care Provider] - 3-5 Days if not improving Disposition Disposition: Home, Self Care
[2023-04-21] MEDS: Acetaminophen 500 MG Tablet 1000 MG PO (22:32)
[2023-04-21] MEDS: Smz/Tmp Ds Tablet 1 TABLET PO (22:33)
[2023-04-21] MEDS: Cefazolin 1 GM/5 ML Vial IM (23:23)
[2023-04-21 23:27] VITALS: PULSE 114; RESP 17; O2SAT 100
== END 2023-04-21 23:28 | disposition home or self-care (01) ==
LOC: ED 22:39
PROVIDERS: Emergency Provider Emergency Medicine; PCP Internal Medicine; Referring Provider Emergency Medicine; Visit Provider Emergency Medicine
DX: O99.712 Diseases of the skin and subcutaneous tissue complicating pregnancy, second trimester (principal); O99.332 Smoking (tobacco) complicating pregnancy, second trimester; F17.210 Nicotine dependence, cigarettes, uncomplicated; Z3A.14 14 weeks gestation of pregnancy; L03.115 Cellulitis of right lower limb
CPT/HCPCS: 96372; 99283

== ENCOUNTER 2023-09-01 19:47 | Emergency (ER) | payer MEDICAID, SELFPAY ==
[2023-09-01 19:49] VITALS: BP 130/90; PULSE 100; RESP 18; TEMP 36.9; O2SAT 98; BMI 23.7
[2023-09-01] MEDS: Erythromycin Base 1 OPTH.TUBE 1 APPLIC EACH EYE (20:06)
--- NOTE | 2023-09-01 20:06 | EDS_ITS ---
HPI <NANCY Levine - Last Filed: 09/01/23 20:24> History of Present Illness Chief Complaint: Eye Problem Narrative Narrative: Patient presenting today due to bilateral eye redness and purulent discharge that started yesterday. She reports that her eyes are blurry when the discharge begins to build up but when she wipes it away, her vision is clear. She denies any injury or foreign body to her eyes. She has not been around anybody with pinkeye. She denies any fevers or chills. She is currently 7 months . PFSH <NANCY Levine - Last Filed: 09/01/23 20:24> [facility] Medical History Anxiety and depression Asthma Depression with anxiety Drug abuse Gallstones Hepatitis C History of drug dependence/abuse Inappropriate sinus tachycardia IV drug abuse IV heroin use Nicotine dependence Schizophrenia Swelling of lower extremity Tachycardia Home Medications sulfamethoxazole 800 mg-trimethoprim 160 mg tablet 1 tab PO BID #20 TABLETS 04/21/23 [Rx Last Taken Unknown] erythromycin 5 mg/gram (0.5 %) eye ointment 1 applic EACH EYE Q6H 7 days #3.5 grams 09/01/23 [Rx Last Taken Unknown] Allergy/AdvReac Type Severity Reaction Status Date / Time brompheniramine maleate Allergy Hives Verified 09/01/23 19:51 [From Dimetapp (brompheniramine-PPA)] mupirocin Allergy Swelling Verified 09/01/23 19:51 phenylpropanolamine HCl Allergy Hives Verified 09/01/23 19:51 [From Dimetapp (brompheniramine-PPA)] Family History Father Depression Anxiety Grandmother Heart disease Depression Hypertension Grandmother Breast cancer Surgical History History of placement of ear tubes History of tonsillectomy and adenoidectomy Social History Smoking Status: Current every day smoker tobacco type: cigarettes alcohol intake: never substance use type: former substance user what type of physical activity do you participate in: none ROS <NANCY Levine - Last Filed: 09/01/23 20:24> ROS ED Constitutional Constitutional ED: Denies chills or fever(s) Eyes Eyes: Denies change in vision or diplopia Cardiovascular Cardiovascular: Denies chest pain Respiratory/Chest Respiratory/Chest: Denies cough or dyspnea Gastrointestinal Gastrointestinal: Denies abdominal pain, nausea or vomiting Genitourinary Genitourinary ED: Denies dysuria, hematuria or urinary frequency Musculoskeletal Musculoskeletal: Denies arthralgias or myalgias Integumentary Denies rash Neurologic Neurologic: Denies weakness EXAM <NANCY Levine - Last Filed: 09/01/23 20:24> Physical Exam Const Vital Signs: 09/01/23 19:49 Temperature 98.4 F Temperature Source Temporal Pulse Rate 100 Respiratory Rate 18 Blood Pressure 130/90 H Blood Pressure Mean 103 Pulse Ox 98 Oxygen Delivery Method Room Air Positive well nourished, well developed and no apparent distress General Appearance ED: well developed HEENT Reports normocephalic and head/scalp atraumatic Mouth ED: Yes moist mucous membranes normal Eyes PERRL and EOMs intact bilaterally Eyes Narrative: Bilateral conjunctival injection and purulent discharge. Neck full ROM and supple Chest Wall inspection of chest normal Resp normal respiratory effort and clear to auscultation bilaterally Cardio regular rate and regular rhythm GI soft to palpation, non-tender, non-distended and no masses Back/Spine normal ROM and normal to inspection Extremity normal to inspection and full ROM Neuro oriented x3, CN's II-XII intact bilaterally, moves all extremities, no focal motor deficits and no sensory deficits noted Sensorium / Orientation: awake and alert Psych mental status grossly normal and thought process normal Skin no rashes or lesions noted and no wounds [facility] <NANCY Levine - Last Filed: 09/01/23 20:24> [facility] Narrative Medical decision making narrative: Patient presenting with bilateral conjunctivitis. She is well-appearing and in no acute distress. Visual acuity will be assessed. She will be given erythromycin ointment. Encouraged follow-up with her PCP, return instructions given. She will be discharged home in stable condition and is comfortable with plan. <Dr. Ramos Ruiz MD - Last Filed: 09/01/23 21:11> [facility] Narrative Medical decision making narrative: Patient presenting with bilateral conjunctivitis. She is well-appearing and in no acute distress. Visual acuity will be assessed. She will be given erythromycin ointment. Encouraged follow-up with her PCP, return instructions given. She will be discharged home in stable condition and is comfortable with plan. I have personally performed a face to face assessment of the patient and have reviewed the B[facility]RB[facility] Note. I performed a substantive portion of the visit including all aspects of the following. My martin findings include: History is remarkable for drainage from both eyes with matting of eyelashes redness irritation foreign body sensation. Patient is , third trimester. Patient denies double vision blurred vision loss of vision. Exam is patient has injected conjunctive bilaterally with thick yellow drainage noted. The sclera is injected. There is no photophobia to direct light. There is no preauricular lymphadenopathy. No symptoms or findings suggestive of upper respiratory infection. Medical Decision Making patient has bilateral conjunctivitis. Since she is she was treated with erythromycin ophthalmic ointment. There is no concern for iritis. There is no concern for episcleritis. Other additions or changes: [None] Discharge Plan Triage Chief Complaint: Eye Problem ED Midlevel Provider: Val Stanley ED Provider: Ramos Ruiz Dx/Rx/DC Orders Clinical Impression: , Bilateral conjunctivitis Instructions: ED Conjunctivitis, Bacterial Prescriptions: New erythromycin 5 mg/gram (0.5 %) ointment 1 applic EACH EYE Q6H 7 Days Qty: 3.5 0RF No Action sulfamethoxazole-trimethoprim [sulfamethoxazole-trimethoprim] 800-160 mg tablet 1 tab PO BID Qty: 20 0RF Primary Care Provider: Care Physician,No Primary Referrals: NOT,DEFINED [Non-Staff] - Activity Restrictions/Additional Instructions: Please follow-up with your PCP and return for any worsening of your symptoms. Disposition Disposition: Home, Self Care Discharge Date/Time: 09/01/23 20:13
[2023-09-01 20:12] VITALS: BP 138/91; PULSE 116; RESP 31; TEMP 36.8; O2SAT 100
== END 2023-09-01 20:13 | disposition home or self-care (01) ==
PROVIDERS: Emergency Provider Emergency Medicine; Visit Provider Emergency Medicine
DX: O99.891 Other specified diseases and conditions complicating pregnancy (principal); H10.9 Unspecified conjunctivitis; O98.419 Viral hepatitis complicating pregnancy, unspecified trimester; B19.20 Unspecified viral hepatitis C without hepatic coma; O99.330 Smoking (tobacco) complicating pregnancy, unspecified trimester; F17.210 Nicotine dependence, cigarettes, uncomplicated; Z3A.00 Weeks of gestation of pregnancy not specified
CPT/HCPCS: 99283